=== PATIENT | male | born 1960 | race American Indian/Alaskan Native ===

== ENCOUNTER 2016-07-29 13:30 | Emergency (ER) | payer MEDICAID ==
[2016-07-29] MEDS ORDERED: Sodium Chloride 0.9% 10 ML Syringe FLUSH PRN (13:40)
--- NOTE | 2016-07-29 13:47 | EDM.PDOC ---
ED HPI GENERAL MEDICAL PROBLEM - General Chief Complaint: General Stated Complaint: WEAKNESS Time Seen by Provider: 07/29/16 13:30 Source of Information: Reports: Patient, EMS, Old records History Limitations: Reports: No limitations - History of Present Illness INITIAL COMMENTS - FREE TEXT/NARRATIVE: 55 yo chronically ill NA male presents via EMS after a fall today at home without injury associated with progressive weakness for the past couple of days and also associated with some diarrhea. Denies pain or fever. Eating OK. not able to get him off the floor so called 911. Onset Date: 07/27/16 Duration: Day(s):, Getting worse Location: Reports: generalized Quality: Reports: Other (no pain.) Severity: moderate Improves with: Reports: None Worsens with: Reports: Other (attempting to ambulate.) Context: Reports: Other (chronically ill, loose stools lately) Associated Symptoms: Reports: weakness. Denies: confusion, chest pain, cough, diaphoresis, fever/chills, headaches, loss of appetite, malaise, nausea/vomiting , rash, seizure, shortness of breath, syncope Treatments [employer]: Reports: Other (see below) (none) - Related Data Allergies Allergy/AdvReac Type Severity Reaction Status Date / Time No Known Allergies Allergy Verified 07/29/16 13:32 Home Meds: Home Meds Minocycline [Minocin] 100 mg PO BID 02/23/14 [History] Sertraline [Zoloft] 200 mg PO DAILY 02/23/14 [History] amLODIPine [Norvasc] 10 mg PO BEDTIME 02/23/14 [History] Nadolol [Naldol] 20 mg PO DAILY 06/29/14 [History] Aspirin [Gil Chewable Aspirin] 81 mg PO DAILY 01/12/16 [History] Meloxicam 7.5 mg PO DAILY 01/12/16 [History] Rifaximin [Xifaxan] 550 tab PO DAILY 01/12/16 [History] Simvastatin 10 mg PO BEDTIME 01/12/16 [History] levETIRAcetam [Keppra] 500 mg PO BID 01/12/16 [History] Warfarin [Coumadin] 1.25 mg PO DAILY@1600 #30 tablet 01/15/16 [Rx] oxyCODONE 10 mg PO Q6H PRN #20 tablet 01/15/16 [Rx] traZODone HCl [Trazodone HCl] 50 mg PO BEDTIME #30 01/15/16 [Rx] Ondansetron [Zofran ODT] 4 mg PO Q8H PRN #7 tab.dis 02/04/16 [Rx] Potassium Chloride 10 meq PO TID #20 cap.er 02/04/16 [Rx] Past Medical History Other HEENT History: wears glasses Cardiovascular History: Reports: High cholesterol, Hypertension, [place], Other (see below) Other Cardiovascular History: Patient is a very poor historian, Per old records , he had a NSTEMI following joint replacement surgery, he apparently also had a stent placed. Respiratory History: Reports: Other (see below) Other Respiratory History: smokes everyday. Gastrointestinal History: Reports: Other (see below) Other Gastrointestinal History: esophageal varicies in june Genitourinary History: Reports: None Musculoskeletal History: Reports: None, Other (see below) Other Musculoskeletal History: fell and broke the bone above the new knee replacement . has a dvt. Neurological History: Reports: Other (see below) Other Neuro History: Encephalopathy Psychiatric History: Reports: Anxiety, Depression Hematologic History: Reports: None Immunologic History: Reports: None Oncologic (Cancer) History: Reports: None Dermatologic History: Reports: Other (see below) Other Dermatologic History: very dry skin on legs and feet - Infectious Disease History Infectious Disease History: Reports: Chicken pox - Past Surgical History Cardiovascular Surgical History: Reports: Coronary artery stent Other Musculoskeletal Surgeries/Procedures:: knee replaced on 02/08 15 left right hip replaced 11/2013 Social & Family History - Family History Family Medical History: Noncontributory OBGYN: Reports: Neurological: Reports: Dementia Psychiatric: Reports: Depression Hematologic: Reports: None Other Oncologic Family History: father had cancer is all patient said - Tobacco Use Smoking Status *Q: Current Every Day Smoker Years of Tobacco use: 10 Packs/Tins Daily: 0.3 Used Tobacco, but Quit: No Month Tobacco Last Used: January Second Hand Smoke Exposure: No - Alcohol Use Days Per Week of Alcohol Use: 0 Number of Drinks Per Day: 3 Total Drinks Per Week: 0 - Recreational Drug Use Recreational Drug Use: No Drug Use in Last 12 Months: Yes Recreational Drug Type: Reports: Marijuana/Hashish Recreational Drug Use Frequency: Daily Recreational Drug Last Use: this week - Living Situation & Occupation Living situation: Reports: single, with significant other (fiancee) ED ROS GENERAL - Review of Systems Review Of Systems: See Below Constitutional: Reports: weakness. Denies: ROS unobtainable, fever, chills, malaise, fatigue, night sweats, diaphoresis, decreased appetite, weight gain HEENT: Reports: No symptoms Respiratory: Reports: No Symptoms Cardiovascular: Reports: No symptoms Endocrine: Reports: no symptoms GI/Abdominal: Reports: Diarrhea. Denies: Abdominal pain, Anorexia, Black stool , Bloody stool, Constipation, Decreased appetite, Distension, Flatus, Hematemesis, Hematochezia, Melena, Mucous in stool, Nausea, Stool incontinence, Vomiting : Reports: no symptoms Musculoskeletal: Reports: joint pain (R hip pain, has prosthetic hip, pain worse since recent falls.) Skin: Reports: other (has a hx of decubuti) Neurological: Reports: No Symptoms Psychiatric: Reports: No symptoms ED EXAM, GENERAL - Physical Exam Exam: See Below Exam Limited By: No limitations General Appearance: alert, no apparent distress, thin, other (chronically ill appearing) Eye Exam: bilateral eye: normal inspection, PERRL Ears: normal external exam, normal canal, hearing grossly normal Ear Exam: bilateral ear: auricle normal, canal normal Nose: normal inspection, normal mucosa, no blood Throat/Mouth: Normal inspection, Normal lips, Normal oropharynx, Normal voice, No airway compromise Head: atraumatic, normocephalic Neck: normal inspection, supple, non-tender Respiratory/Chest: no respiratory distress, lungs clear, normal breath sounds, no accessory muscle use Cardiovascular: regular rate, rhythm, no edema, no murmur GI/Abdominal: soft, non tender, no distention Back Exam: normal inspection Extremities: normal inspection, normal range of motion, non-tender, no pedal edema Neurological: alert, oriented, CN II-XII intact, normal cognition, no motor/ sensory deficits Psychiatric: normal affect, normal mood Skin Exam: Warm, Dry, Intact, Normal color, No rash Lymphatic: no adenopathy Course - Vital Signs Text/Narrative:: Saline lock Last Recorded V/S: Last Vital Signs Temp 36.9 C 07/29/16 13:55 Pulse 55 L 07/29/16 13:55 Resp 18 07/29/16 13:55 BP 144/83 H 07/29/16 13:55 Pulse Ox 98 07/29/16 13:55 - Orders/Labs/Meds Orders: Active Orders 24 hr Category Date Time Status Consult to Lead Software Architect [CONS] Routine Cons 07/29/16 14:49 Active UA W/MICROSCOPIC [URIN] Stat Lab 07/29/16 13:40 Uncollected Sodium Chloride 0.9% [Saline Flush] Med 07/29/16 13:40 Active 10 ml FLUSH ASDIRECTED PRN Saline Lock Insert [OM.PC] Routine Oth 07/29/16 13:40 Ordered Medication Orders Sodium Chloride (Saline Flush) 10 ml FLUSH ASDIRECTED PRN PRN Reason: Keep Vein Open Labs: Laboratory Tests 07/29/16 07/29/16 07/29/16 Range/Units 14:10 14:10 14:10 WBC 7.1 (4.5-12.0) X10-3/uL RBC 4.59 (4.30-5.75) x10(6)uL Hgb 13.0 (11.5-15.5) g/dL Hct 40.0 (30.0-51.3) % MCV 87.2 (80-96) fL MCH 28.4 (27.7-33.6) pg MCHC 32.6 (32.2-35.4) g/dL RDW 14.8 (11.5-15.5) % Plt Count 140 (125-369) X10(3)uL PT (8.7-11.1) INR (0.89-1.13) Sodium 136 (135-145) mmol/L Potassium 3.5 (3.5-5.3) mmol/L Chloride 107 (100-110) mmol/L Carbon Dioxide 21 L (23-29) mmol/L BUN 17 (5-20) mg/dL Creatinine 0.9 (0.6-1.3) mg/dL Est Cr Clr Drug Dosing TNP Estimated GFR (MDRD) > 60 (>60) BUN/Creatinine Ratio 18.9 (9-20) Glucose 100 (80-116) mg/dL Calcium 8.4 L (8.6-10.2) mg/dL Magnesium 1.6 L (1.8-2.5) mg/dL Total Bilirubin 1.5 H (0.1-1.3) mg/dL AST 143 H D (5-27) IU/L ALT 30 H D (14-26) IU/L Alkaline Phosphatase 273 H (56-112) IU/L Troponin I < 0.01 L (0.02-0.06) NG/ML Total Protein 7.6 (6.0-8.0) g/dL Albumin 2.7 L (3.5-5.2) g/dL Globulin 4.9 g/dL Albumin/Globulin Ratio 0.6 07/29/16 Range/Units 14:10 WBC (4.5-12.0) X10-3/uL RBC (4.30-5.75) x10(6)uL Hgb (11.5-15.5) g/dL Hct (30.0-51.3) % MCV (80-96) fL MCH (27.7-33.6) pg MCHC (32.2-35.4) g/dL RDW (11.5-15.5) % Plt Count (125-369) X10(3)uL PT 12.9 H (8.7-11.1) INR 1.27 H (0.89-1.13) Sodium (135-145) mmol/L Potassium (3.5-5.3) mmol/L Chloride (100-110) mmol/L Carbon Dioxide (23-29) mmol/L BUN (5-20) mg/dL Creatinine (0.6-1.3) mg/dL Est Cr Clr Drug Dosing Estimated GFR (MDRD) (>60) BUN/Creatinine Ratio (9-20) Glucose (80-116) mg/dL Calcium (8.6-10.2) mg/dL Magnesium (1.8-2.5) mg/dL Total Bilirubin (0.1-1.3) mg/dL AST (5-27) IU/L ALT (14-26) IU/L Alkaline Phosphatase (56-112) IU/L Troponin I (0.02-0.06) NG/ML Total Protein (6.0-8.0) g/dL Albumin (3.5-5.2) g/dL Globulin g/dL Albumin/Globulin Ratio Meds: Medications Generic Name Dose Route Start Last Admin Trade Name Freq PRN Reason Stop Dose Admin Sodium Chloride 10 ml 07/29/16 13:40 Saline Flush FLUSH ASDIRECTED PRN Keep Vein Open Departure - Departure Time of Disposition: 15:43 Disposition: Home, Self-Care 01 Condition: fair Clinical Impression: Chronic illness, Weakness Fall Qualifiers: Encounter type: initial encounter Qualified Code(s): W19.XXXA - Unspecified fall, initial encounter - My Orders Last 24 Hours: My Active Orders 07/29/16 13:40 UA W/MICROSCOPIC [URIN] Stat Sodium Chloride 0.9% [Saline Flush] 10 ml FLUSH ASDIRECTED PRN Saline Lock Insert [OM.PC] Routine 07/29/16 14:49 Consult to Lead Software Architect [CONS] Routine - Assessment/Plan Last 24 Hours: My Active Orders 07/29/16 13:40 UA W/MICROSCOPIC [URIN] Stat Sodium Chloride 0.9% [Saline Flush] 10 ml FLUSH ASDIRECTED PRN Saline Lock Insert [OM.PC] Routine 07/29/16 14:49 Consult to Lead Software Architect [CONS] Routine
[2016-07-29 14:17] VITALS: BP 144/83
== END 2016-07-29 16:01 | disposition home or self-care (01) ==
LOC: FB.ED 13:30
DX: R53.1 Weakness (principal); R69 Illness, unspecified; E78.00 Pure hypercholesterolemia, unspecified; I10 Essential (primary) hypertension; I25.2 Old myocardial infarction; F32.9 Major depressive disorder, single episode, unspecified; F41.9 Anxiety disorder, unspecified; F17.210 Nicotine dependence, cigarettes, uncomplicated; Z79.899 Other long term (current) drug therapy; W19.XXXA Unspecified fall, initial encounter
CPT/HCPCS: 36415; 80053; 83735; 84484; 85027; 85610; 99285

== ENCOUNTER 2016-08-19 20:23 | Inpatient (IN) | payer MEDICAID ==
--- NOTE | 2016-08-19 21:01 | EDM.PDOC ---
ED HPI GENERAL MEDICAL PROBLEM - General Chief Complaint: Neuro Symptoms/Deficits Stated Complaint: WEAKNESS Time Seen by Provider: 08/19/16 20:45 Source of Information: Reports: Patient, Old records History Limitations: Reports: Altered mental status - History of Present Illness INITIAL COMMENTS - FREE TEXT/NARRATIVE: Farshad Tejeda is well known to [facility] ED, transferred by EMS. His most recent visit of July 29, 2016 reviewed. There have been ongoing sxs of weakness, lethargy, poor appetite, and lack of goal directed behavior. There is known PMH of EHOHism , Cannabis abuse, hepatic encephalopathy, and neglect. Tonight his spouse found him on the floor, and suspects he slid out of the chair, although Farshad reports he stumbled on his feet. He denies headache, dizziness, chest pain, dyspnea, abdominal pain, voiding sxs, or focal neurologic weakness. He admits to "some weed" today, but denies ETOH or other substance abuse. His spouse is unavailable at this time to provide collateral information. An EMS report is unavailable. - Related Data Allergies Allergy/AdvReac Type Severity Reaction Status Date / Time No Known Allergies Allergy Verified 08/19/16 20:42 Home Meds: Home Meds Minocycline [Minocin] 100 mg PO BID 02/23/14 [History] Sertraline [Zoloft] 200 mg PO DAILY 02/23/14 [History] amLODIPine [Norvasc] 10 mg PO BEDTIME 02/23/14 [History] Nadolol [Naldol] 20 mg PO DAILY 06/29/14 [History] Aspirin [Gil Chewable Aspirin] 81 mg PO DAILY 01/12/16 [History] Meloxicam 7.5 mg PO DAILY 01/12/16 [History] Rifaximin [Xifaxan] 550 tab PO DAILY 01/12/16 [History] Simvastatin 10 mg PO BEDTIME 01/12/16 [History] levETIRAcetam [Keppra] 500 mg PO BID 01/12/16 [History] Warfarin [Coumadin] 1.25 mg PO DAILY@1600 #30 tablet 01/15/16 [Rx] oxyCODONE 10 mg PO Q6H PRN #20 tablet 01/15/16 [Rx] traZODone HCl [Trazodone HCl] 50 mg PO BEDTIME #30 01/15/16 [Rx] Ondansetron [Zofran ODT] 4 mg PO Q8H PRN #7 tab.dis 02/04/16 [Rx] Potassium Chloride 10 meq PO TID #20 cap.er 02/04/16 [Rx] Past Medical History Other HEENT History: wears glasses Cardiovascular History: Reports: High cholesterol, Hypertension, [place], Other (see below) Other Cardiovascular History: Patient is a very poor historian, Per old records , he had a NSTEMI following joint replacement surgery, he apparently also had a stent placed. Respiratory History: Reports: Other (see below) Other Respiratory History: smokes everyday. Gastrointestinal History: Reports: Other (see below) Other Gastrointestinal History: esophageal varicies in june Genitourinary History: Reports: None Musculoskeletal History: Reports: None, Other (see below) Other Musculoskeletal History: fell and broke the bone above the new knee replacement . has a dvt. Neurological History: Reports: Other (see below) Other Neuro History: Encephalopathy Psychiatric History: Reports: Anxiety, Depression Hematologic History: Reports: None Immunologic History: Reports: None Oncologic (Cancer) History: Reports: None Dermatologic History: Reports: Other (see below) Other Dermatologic History: very dry skin on legs and feet - Infectious Disease History Infectious Disease History: Reports: Chicken pox - Past Surgical History Cardiovascular Surgical History: Reports: Coronary artery stent Other Musculoskeletal Surgeries/Procedures:: knee replaced on 02/08 15 left right hip replaced 11/2013 Social & Family History - Family History Family Medical History: Noncontributory OBGYN: Reports: Neurological: Reports: Dementia Psychiatric: Reports: Depression Hematologic: Reports: None Other Oncologic Family History: father had cancer is all patient said - Tobacco Use Smoking Status *Q: Current Every Day Smoker Years of Tobacco use: 10 Packs/Tins Daily: 0.3 Used Tobacco, but Quit: No Month Tobacco Last Used: January Second Hand Smoke Exposure: No - Alcohol Use Days Per Week of Alcohol Use: 0 Number of Drinks Per Day: 3 Total Drinks Per Week: 0 - Recreational Drug Use Recreational Drug Use: No Drug Use in Last 12 Months: Yes Recreational Drug Type: Reports: Marijuana/Hashish Recreational Drug Use Frequency: Daily Recreational Drug Last Use: this week - Living Situation & Occupation Living situation: Reports: single, with significant other (fiancee) ED ROS GENERAL - Review of Systems Review Of Systems: See Below Constitutional: Reports: malaise, fatigue HEENT: Reports: No symptoms Respiratory: Reports: No Symptoms Cardiovascular: Reports: No symptoms Endocrine: Reports: fatigue GI/Abdominal: Reports: No symptoms : Reports: no symptoms Musculoskeletal: Reports: other (R MARCELO that prevent him from gainful employment) Skin: Reports: no symptoms Neurological: Reports: Confusion, Weakness, Other (poverty of thought) Psychiatric: Reports: Confusion Hematologic/Lymphatic: Reports: no symptoms Immunologic: Reports: no symptoms ED EXAM, GENERAL - Physical Exam Exam: See Below Exam Limited By: Altered mental status (confusion) General Appearance: alert, WD/WN, lethargic, cachetic Eye Exam: bilateral eye: normal inspection, PERRL Ears: normal external exam Nose: normal inspection Throat/Mouth: Normal inspection, Normal lips, Other (numerous teeth missing, extensive gum disease) Head: atraumatic, normocephalic Neck: normal inspection, supple, non-tender Respiratory/Chest: no respiratory distress, lungs clear, chest non-tender, decreased breath sounds Cardiovascular: regular rate, rhythm, no edema, no JVD, no murmur GI/Abdominal: soft, non tender, no organomegaly, no distention, no mass, other ( no ascities) (Male) Exam: No hernia Back Exam: normal inspection Extremities: normal inspection Neurological: CN II-XII intact, no motor/sensory deficits, inattentive, confused , slow to respond, other (no asterixis) Psychiatric: other (mood neutral, affect blunted) Skin Exam: Warm, Dry, Intact, Other (ashen coloration) Lymphatic: no adenopathy Course - Vital Signs Text/Narrative:: Following admission to the [facility] ED, an IV was placed in the LUE and he was administered 1L of NS pending results of labs and ekg. The ekg noted nsr, CBC noted Hgb 11.9 gm, WBC 8100, plts normal; CMP noted T Bili 1.9, Na 135, K 3.5, AST 141, ALT 35, Alk Ptase 270, Alb 2.6, Mg 1.8; Ammonia 93 mg; Urine Tox Screen positive for cannabis; UA: ket 1+, bili 1+. Farshad was administered 1L of NS pending results of lab studies. An Ammonia level of 124 mg was recorded last year. Medication compliance is unknown. He does not have asterixis, but is currently displaying GR I encephalopathy, and will be admitted for observation and fluids. Disposition to a SNF should be considered. Last Recorded V/S: Last Vital Signs Temp 36.3 C 08/19/16 20:44 Pulse 54 L 08/19/16 20:44 Resp 14 08/19/16 20:44 BP 91/60 08/19/16 20:44 Pulse Ox 99 08/19/16 20:44 - Orders/Labs/Meds Orders: Active Orders 24 hr Category Date Time Status EKG Documentation Completion [RC] ASDIRECTED Care 08/19/16 20:47 Active Sodium Chloride 0.9% [Normal Saline] 1,000 ml Med 08/19/16 21:00 Active IV ASDIRECTED Sodium Chloride 0.9% [Saline Flush] Med 08/19/16 20:46 Active 10 ml FLUSH ASDIRECTED PRN Peripheral IV Insertion Adult [OM.PC] Routine Oth 08/19/16 20:46 Ordered EKG 12 Lead [EK] Routine Ther 08/19/16 20:46 Ordered Medication Orders Sodium Chloride (Normal Saline) 1,000 mls @ 500 mls/hr IV ASDIRECTED BRANDEN Last Admin: 08/19/16 21:08 Dose: 500 mls/hr Sodium Chloride (Saline Flush) 10 ml FLUSH ASDIRECTED PRN PRN Reason: Keep Vein Open Last Admin: 08/19/16 21:07 Dose: 10 ml Labs: Laboratory Tests 08/19/16 08/19/16 08/19/16 Range/Units 21:00 21:00 21:00 WBC 8.1 (4.5-12.0) X10-3/uL RBC 4.24 L (4.30-5.75) x10(6)uL Hgb 11.9 (11.5-15.5) g/dL Hct 36.7 (30.0-51.3) % MCV 86.5 (80-96) fL MCH 28.0 (27.7-33.6) pg MCHC 32.4 (32.2-35.4) g/dL RDW 15.4 (11.5-15.5) % Plt Count 186 (125-369) X10(3)uL MPV 9.7 (7.4-10.4) fL Neut % (Auto) 69.0 (46-82) % Lymph % (Auto) 24.6 (13-37) % [place] % (Auto) 5.6 (4-12) % Eos % (Auto) 1 (1.0-5.0) % Baso % (Auto) 0 (0-2) % Neut # (Auto) 5.6 (1.6-8.3) # Lymph # (Auto) 2.0 (0.6-5.0) # [place] # (Auto) 0.5 (0.0-1.3) # Eos # (Auto) 0.0 (0.0-0.8) # Baso # (Auto) 0.0 (0.0-0.2) # Sodium 135 (135-145) mmol/L Potassium 3.5 (3.5-5.3) mmol/L Chloride 106 (100-110) mmol/L Carbon Dioxide 20 L (23-29) mmol/L BUN 25 H (5-20) mg/dL Creatinine 1.2 (0.6-1.3) mg/dL Est Cr Clr Drug Dosing 79.53 mL/min Estimated GFR (MDRD) > 60 (>60) BUN/Creatinine Ratio 20.8 H (9-20) Glucose 87 (80-116) mg/dL Calcium 8.3 L (8.6-10.2) mg/dL Magnesium 1.8 (1.8-2.5) mg/dL Total Bilirubin 1.9 H (0.1-1.3) mg/dL AST 141 H (5-27) IU/L ALT 35 H D (14-26) IU/L Alkaline Phosphatase 270 H (56-112) IU/L Ammonia Total Protein 7.5 (6.0-8.0) g/dL Albumin 2.6 L (3.5-5.2) g/dL Globulin 4.9 g/dL Albumin/Globulin Ratio 0.5 Urine Color (YELLOW) Urine Appearance (CLEAR) Urine pH (5.0-6.5) Ur Specific [place] (1.010-1.025) Urine Protein (NEGATIVE) mg/dL Urine Glucose (UA) (NEGATIVE) mg/dL Urine Ketones (NEGATIVE) mg/dL Urine Occult Blood (NEGATIVE) Urine Nitrite (NEGATIVE) Urine Bilirubin (NEGATIVE) Urine Urobilinogen (NEGATIVE) mg/dL Ur Leukocyte Esterase (NEGATIVE) Urine RBC (0) Urine WBC (0) Ur Squamous Epith Cells (NS,R,O) Urine Bacteria (NS) Urine Opiates Screen (NEGATIVE) Ur Oxycodone Screen (NEGATIVE) Ur Propoxyphene Screen (NEGATIVE) Ur Barbituates Screen (NEGATIVE) Ur Tricyclics Screen (NEGATIVE) Ur Phencyclidine Scrn (NEGATIVE) Ur Amphetamine Screen (NEGATIVE) Urine MDMA Screen (NEGATIVE) U Benzodiazepines Scrn (NEGATIVE) U Cocaine Metab Screen (NEGATIVE) U Marijuana (THC) Screen (NEGATIVE) Ethyl Alcohol < 0.01 (<0.01) % 08/19/16 08/19/16 08/19/16 Range/Units 21:00 23:25 23:25 WBC (4.5-12.0) X10-3/uL RBC (4.30-5.75) x10(6)uL Hgb (11.5-15.5) g/dL Hct (30.0-51.3) % MCV (80-96) fL MCH (27.7-33.6) pg MCHC (32.2-35.4) g/dL RDW (11.5-15.5) % Plt Count (125-369) X10(3)uL MPV (7.4-10.4) fL Neut % (Auto) (46-82) % Lymph % (Auto) (13-37) % [place] % (Auto) (4-12) % Eos % (Auto) (1.0-5.0) % Baso % (Auto) (0-2) % Neut # (Auto) (1.6-8.3) # Lymph # (Auto) (0.6-5.0) # [place] # (Auto) (0.0-1.3) # Eos # (Auto) (0.0-0.8) # Baso # (Auto) (0.0-0.2) # Sodium (135-145) mmol/L Potassium (3.5-5.3) mmol/L Chloride (100-110) mmol/L Carbon Dioxide (23-29) mmol/L BUN (5-20) mg/dL Creatinine (0.6-1.3) mg/dL Est Cr Clr Drug Dosing mL/min Estimated GFR (MDRD) (>60) BUN/Creatinine Ratio (9-20) Glucose (80-116) mg/dL Calcium (8.6-10.2) mg/dL Magnesium (1.8-2.5) mg/dL Total Bilirubin (0.1-1.3) mg/dL AST (5-27) IU/L ALT (14-26) IU/L Alkaline Phosphatase (56-112) IU/L Ammonia 93 Total Protein (6.0-8.0) g/dL Albumin (3.5-5.2) g/dL Globulin g/dL Albumin/Globulin Ratio Urine Color Yellow (YELLOW) Urine Appearance Clear (CLEAR) Urine pH 6.0 (5.0-6.5) Ur Specific [place] 1.020 (1.010-1.025) Urine Protein Negative (NEGATIVE) mg/dL Urine Glucose (UA) Normal (NEGATIVE) mg/dL Urine Ketones 15 H (NEGATIVE) mg/dL Urine Occult Blood Negative (NEGATIVE) Urine Nitrite Negative (NEGATIVE) Urine Bilirubin Small H (NEGATIVE) Urine Urobilinogen 4 H (NEGATIVE) mg/dL Ur Leukocyte Esterase Negative (NEGATIVE) Urine RBC 0-5 (0) Urine WBC 0-5 (0) Ur Squamous Epith Cells Occasional (NS,R,O) Urine Bacteria Rare H (NS) Urine Opiates Screen Negative (NEGATIVE) Ur Oxycodone Screen Negative (NEGATIVE) Ur Propoxyphene Screen Negative (NEGATIVE) Ur Barbituates Screen Negative (NEGATIVE) Ur Tricyclics Screen Negative (NEGATIVE) Ur Phencyclidine Scrn Negative (NEGATIVE) Ur Amphetamine Screen Negative (NEGATIVE) Urine MDMA Screen Negative (NEGATIVE) U Benzodiazepines Scrn Negative (NEGATIVE) U Cocaine Metab Screen Negative (NEGATIVE) U Marijuana (THC) Screen Positive H (NEGATIVE) Ethyl Alcohol (<0.01) % Meds: Medications Generic Name Dose Route Start Last Admin Trade Name Freq PRN Reason Stop Dose Admin Sodium Chloride 1,000 mls @ 500 mls/hr 08/19/16 21:00 08/19/16 21:08 Normal Saline IV 500 mls/hr ASDIRECTED BRANDEN Administration Sodium Chloride 10 ml 08/19/16 20:46 08/19/16 21:07 Saline Flush FLUSH 10 ml ASDIRECTED PRN Administration Keep Vein Open Departure - Departure Time of Disposition: 00:50 Disposition: Refer to Observation Condition: poor Clinical Impression: Hepatic encephalopathy, Cannabis abuse, Generalized convulsive epilepsy, HTN, Essential hypertension, Osteoarthritis, [place], Myocardial infarction Referrals: PCP,Unknown [Primary Care Provider] - - Problem List & Annotations (1) Hepatic encephalopathy SNOMED Code(s): 34103200 Code(s): K72.90 - HEPATIC FAILURE, UNSPECIFIED WITHOUT COMA Status: Acute Current Visit: Yes Annotation/Comment:: Farshad displays signs of GR I encephalopathy. A GI bleed is not suspected. Med compliance is unknown. He will receive hydration tonight and discuss disposition with family and hospitalist in the morning. (2) Cannabis abuse SNOMED Code(s): 44444225 Code(s): F12.10 - CANNABIS ABUSE, UNCOMPLICATED Status: Acute Current Visit: Yes Annotation/Comment:: Farshad needs a safe environment away from smoking cigarettes or MJ. (3) Generalized convulsive epilepsy SNOMED Code(s): 50706047 Code(s): G40.309 - GEN IDIOPATHIC EPILEPSY, NOT INTRACTABLE, W/O STAT EPI Status: Chronic Current Visit: Yes Annotation/Comment:: Farshad needs med compliance to avoid relapse of epilepsy. (4) DVT (deep venous thrombosis) SNOMED Code(s): 174278093 Code(s): I82.409 - ACUTE EMBOLISM AND THOMBOS UNSP DEEP VN UNSP LOWER EXTREMITY Status: Acute Current Visit: No Annotation/Comment:: Farshad has a PMH of DVT, and was on Warfarin at last ED visit of 07/29/16. (5) [place], Myocardial infarction SNOMED Code(s): 96144217 Code(s): I21.3 - ST ELEVATION (STEMI) MYOCARDIAL INFARCTION OF UNSP SITE Status: Acute Current Visit: Yes Annotation/Comment:: Farshad has remote his of NSTEMI and stenting, and needs med compliance and tobacco avoidance to preserve myocardial function. - Problem List Review Problem List Initiated/Reviewed/Updated: Yes - My Orders Last 24 Hours: My Active Orders 08/19/16 20:46 Sodium Chloride 0.9% [Saline Flush] 10 ml FLUSH ASDIRECTED PRN Peripheral IV Insertion Adult [OM.PC] Routine EKG 12 Lead [EK] Routine 08/19/16 20:47 EKG Documentation Completion [RC] ASDIRECTED 08/19/16 21:00 Sodium Chloride 0.9% [Normal Saline] 1,000 ml IV ASDIRECTED - Assessment/Plan Last 24 Hours: My Active Orders 08/19/16 20:46 Sodium Chloride 0.9% [Saline Flush] 10 ml FLUSH ASDIRECTED PRN Peripheral IV Insertion Adult [OM.PC] Routine EKG 12 Lead [EK] Routine 08/19/16 20:47 EKG Documentation Completion [RC] ASDIRECTED 08/19/16 21:00 Sodium Chloride 0.9% [Normal Saline] 1,000 ml IV ASDIRECTED Plan: Admit to Observation, and convene with family in the morning to discuss disposition with Hospitalist.
[2016-08-19] MEDS: Sodium Chloride 0.9% 10 ML Syringe FLUSH PRN (21:07)
[2016-08-19] MEDS: Sodium Chloride 0.9% 1,000 ML IV SCH (21:08)
[2016-08-20] MEDS ORDERED: Ondansetron 4 MG Tab.DIS PO PRN ×2 (02:00→02:12)
[2016-08-20] MEDS ORDERED: Acetaminophen 325 MG Tab PO PRN (02:00)
[2016-08-20] MEDS: Sodium Chloride 0.9% 1,000 ML IV SCH ×4 (05:17→18:38)
[2016-08-20] MEDS: Sodium Chloride 0.9% 10 ML Syringe FLUSH PRN ×2 (05:18→05:19)
[2016-08-20] MEDS: levETIRAcetam 500 MG Tab PO SCH ×2 (08:55→20:57)
[2016-08-20] MEDS: Aspirin 81 MG Tab.Chew PO SCH (08:55)
[2016-08-20] MEDS: Rifaximin 550 MG Tab PO SCH ×2 (08:58→20:57)
[2016-08-20] MEDS ORDERED: Rifaximin 550 MG Tab PO SCH (09:00)
--- NOTE | 2016-08-20 11:46 | PCM.HP ---
H&P History of Present Illness - General Date of Service: 08/20/16 Admit Problem/Dx: Admission Diagnosis/Problem Admission Diagnosis/Problem Hepatic encephalopathy Source of Information: Patient, Family History Limitations: Reports: Altered mental status - History of Present Illness Initial Comments - Free Text/Narative: This is a 55-year-old male patient with a history of alcoholism. He has been falling at home and more confused according to his . He can answer questions yes and no today. He fell yesterday and was brought in. He has a history of rheumatoid arthritis and his says his numbness in his legs and is unable to ambulate because of weakness. She states he's not using alcohol for one year. He feels a little chilly. He denies fevers, nasal congestion, sore throat, abdominal pain. Generalized Pain Score (Numeric/FACES): 9 - Related Data Allergies/Adverse Reactions: Allergies Allergy/AdvReac Type Severity Reaction Status Date / Time No Known Allergies Allergy Verified 08/19/16 20:42 Home Medications: Home Meds Minocycline [Minocin] 100 mg PO BID 02/23/14 [History] Sertraline [Zoloft] 200 mg PO DAILY 02/23/14 [History] amLODIPine [Norvasc] 10 mg PO BEDTIME 02/23/14 [History] Nadolol [Naldol] 20 mg PO DAILY 06/29/14 [History] Aspirin [Gil Chewable Aspirin] 81 mg PO DAILY 01/12/16 [History] Meloxicam 7.5 mg PO DAILY 01/12/16 [History] Rifaximin [Xifaxan] 550 tab PO DAILY 01/12/16 [History] Simvastatin 10 mg PO BEDTIME 01/12/16 [History] levETIRAcetam [Keppra] 500 mg PO BID 01/12/16 [History] traZODone 50 mg PO BEDTIME PRN 08/20/16 [History] Past Medical History Other HEENT History: wears glasses Cardiovascular History: Reports: High cholesterol, Hypertension, [place], Other (see below) Other Cardiovascular History: Patient is a very poor historian, Per old records , he had a NSTEMI following joint replacement surgery, he apparently also had a stent placed. Respiratory History: Reports: Other (see below) Other Respiratory History: smokes everyday. Gastrointestinal History: Reports: Other (see below) Other Gastrointestinal History: esophageal varicies in june Genitourinary History: Reports: None Musculoskeletal History: Reports: None, Other (see below) Other Musculoskeletal History: fell and broke the bone above the new knee replacement . has a dvt. Neurological History: Reports: Other (see below) Other Neuro History: Encephalopathy Psychiatric History: Reports: Anxiety, Depression Hematologic History: Reports: None Immunologic History: Reports: None Oncologic (Cancer) History: Reports: None Dermatologic History: Reports: Other (see below) Other Dermatologic History: very dry skin on legs and feet - Infectious Disease History Infectious Disease History: Reports: Chicken pox - Past Surgical History Cardiovascular Surgical History: Reports: Coronary artery stent Respiratory Surgical History: Reports: None Other Musculoskeletal Surgeries/Procedures:: knee replaced on 02/08 15 left right hip replaced 11/2013 Social & Family History - Family History Family Medical History: Noncontributory OBGYN: Reports: Neurological: Reports: Dementia Psychiatric: Reports: Depression Hematologic: Reports: None Other Oncologic Family History: father had cancer is all patient said - Tobacco Use Smoking Status *Q: Current Every Day Smoker Years of Tobacco use: 10 Packs/Tins Daily: 0.3 Used Tobacco, but Quit: No Month Tobacco Last Used: January Second Hand Smoke Exposure: No - Caffeine Use Caffeine Use: Reports: None - Alcohol Use Days Per Week of Alcohol Use: 0 Number of Drinks Per Day: 3 Total Drinks Per Week: 0 - Recreational Drug Use Recreational Drug Use: Yes Drug Use in Last 12 Months: Yes Recreational Drug Type: Reports: Marijuana/Hashish Recreational Drug Use Frequency: Daily Recreational Drug Last Use: this week - Living Situation & Occupation Living situation: Reports: single, with significant other (fiancee) H&P Review of Systems - Review of Systems: Review Of Systems: See Below General: Reports: chills, malaise, weakness, fatigue. Denies: fever, night sweats, diaphoresis HEENT: Reports: no symptoms Pulmonary: Reports: No Symptoms Cardiovascular: Reports: no symptoms Gastrointestinal: Reports: No symptoms Genitourinary: Reports: no symptoms Musculoskeletal: Reports: joint swelling Skin: Reports: no symptoms Psychiatric: Reports: depression Neurological: Reports: Confusion Immunologic: Reports: no symptoms Exam - Exam Exam: See Below - Vital Signs Vital Signs: Last Vital Signs Temp 97.5 F 08/20/16 08:00 Pulse 54 L 04/05/17 08:57 Resp 16 08/20/16 08:00 BP 89/54 L 08/20/16 08:57 Pulse Ox 98 08/20/16 08:00 Weight: 180 lb 11.2 oz - Exam General: alert, cooperative, sedated HEENT: PERRLA, Conjunctiva clear, Hearing intact, Posterior pharynx clear. No: Scleral icterus Neck: supple, trachea midline Lungs: Clear to auscultation, Normal respiratory effort Cardiovascular: regular rate, regular rhythm. No: systolic murmur, diastolic murmur Abdomen: normal bowel sounds, soft. No: organomegaly, guarding, rigidity, rebound, tenderness Back Exam: normal inspection Extremities: No: edema Neuro Extensive - Mental Status: alert. No: normal mood/affect, normal cognition - Patient Data Lab Results last 24 hrs: Laboratory Results - last 24 hr 08/20/16 Range/Units 03:10 PT 15.8 H (8.7-11.1) INR 1.55 H (0.89-1.13) Result Diagrams: 08/19/16 21:00 08/19/16 21:00 *Q Meaningful Use (ADM) - VTE *Q VTE Criteria *Q: - Stroke *Q Stroke Criteria *Q: - AMI *Q AMI Criteria *Q: - Problem List (1) Cannabis abuse SNOMED Code(s): 01642792 ICD Code: F12.10 - CANNABIS ABUSE, UNCOMPLICATED Status: Acute Current Visit: Yes Problem Details: Farshad needs a safe environment away from smoking cigarettes or MJ. (2) Hepatic encephalopathy SNOMED Code(s): 43044591 ICD Code: K72.90 - HEPATIC FAILURE, UNSPECIFIED WITHOUT COMA Status: Acute Current Visit: Yes Problem Details: Farshad displays signs of GR I encephalopathy. A GI bleed is not suspected. Med compliance is unknown. He will receive hydration tonight and discuss disposition with family and hospitalist in the morning. (3) Unable to ambulate SNOMED Code(s): 651012897 ICD Code: R26.2 - DIFFICULTY IN WALKING, NOT ELSEWHERE CLASSIFIED Status: Acute Current Visit: No Problem Details: Very difficult for patient to move secondary to weight bearing status of leg. (4) Weakness SNOMED Code(s): 55480626 ICD Code: R53.1 - WEAKNESS Status: Acute Current Visit: No (5) Dehydration SNOMED Code(s): 02307695 ICD Code: E86.0 - DEHYDRATION Status: Resolved Priority: Low Current Visit: No Problem Details: Resolved with IVF. (6) Recurrent falls while walking SNOMED Code(s): 195045515 ICD Code: R29.6 - REPEATED FALLS Status: Resolved Priority: High Current Visit: No Onset Date: 04/04/15 (7) Palliative care status SNOMED Code(s): 039281264 ICD Code: Z51.5 - ENCOUNTER FOR PALLIATIVE CARE Status: Acute Current Visit: Yes Problem List Initiated/Reviewed/Updated: Yes Orders Last 24hrs: Active Orders 24 hr Category Date Time Status Patient Status [ADT] Routine ADT 08/20/16 02:00 Active Anticoag Warfarin Education *Q [RC] DAILY Care 08/20/16 02:00 Active Oxygen Therapy [RC] PRN Care 08/20/16 02:00 Active Up With Assistance [RC] ASDIRECTED Care 08/20/16 02:00 Active VTE/DVT Education [RC] Per Unit Routine Care 08/20/16 02:00 Active Vital Signs [RC] 00,04,08,12,16,20 Care 08/20/16 02:00 Active Mechanical Soft Diet [DIET] Diet 08/20/16 Breakfast Active Acetaminophen [Tylenol] Med 08/20/16 02:00 Active 650 mg PO Q4H PRN Aspirin Med 08/20/16 09:00 Active 81 mg PO DAILY Nadolol [Naldol] Med 08/20/16 09:00 Active 20 mg PO DAILY Ondansetron [Zofran ODT] Med 08/20/16 02:12 Active 4 mg PO Q8H PRN Rifaximin [Xifaxan] Med 08/20/16 09:00 Active 550 mg PO BID Sodium Chloride 0.9% [Normal Saline] 1,000 ml Med 08/20/16 02:15 Active IV ASDIRECTED Warfarin [Coumadin] Med 08/20/16 16:00 Active 1.25 mg PO DAILY@1600 levETIRAcetam [Keppra] Med 08/20/16 09:00 Active 500 mg PO BID Resuscitation Status Routine Resus Stat 08/20/16 02:00 Ordered Medication Orders Acetaminophen (Tylenol) 650 mg PO Q4H PRN PRN Reason: Pain (Mild 1-3)/fever Aspirin (Aspirin) 81 mg PO DAILY [facility] Last Admin: 08/20/16 08:55 Dose: 81 mg Sodium Chloride (Normal Saline) 1,000 mls @ 500 mls/hr IV ASDIRECTED [facility] Last Admin: 08/20/16 05:17 Dose: 500 mls/hr Infusion: 08/19/16 23:08 Dose: 500 mls/hr Admin: 08/19/16 21:08 Dose: 500 mls/hr Sodium Chloride (Normal Saline) 1,000 mls @ 150 mls/hr IV ASDIRECTED [facility] Last Admin: 08/20/16 05:18 Dose: 150 mls/hr Levetiracetam (Keppra) 500 mg PO BID [facility] Last Admin: 08/20/16 08:55 Dose: 500 mg Nadolol (Naldol) 20 mg PO DAILY [facility] Last Admin: 08/20/16 08:57 Dose: Ondansetron HCl (Zofran Odt) 4 mg PO Q8H PRN PRN Reason: Nausea Rifaximin (Xifaxan) 550 mg PO BID [facility] Last Admin: 08/20/16 08:58 Dose: 550 mg Sodium Chloride (Saline Flush) 10 ml FLUSH ASDIRECTED PRN PRN Reason: Keep Vein Open Last Admin: 08/20/16 05:19 Dose: 10 ml Admin: 08/20/16 05:18 Dose: 10 ml Admin: 08/19/16 21:07 Dose: 10 ml Warfarin Sodium (Coumadin) 1.25 mg PO DAILY@1600 [facility] Assessment/Plan Comment:: 1. Admit for inpatient. 2. The patient's stated that they're interested in [facility] care. So I will order PT/OT and social service. 3. He wants to be a full code. 4. His ammonia level is high so we'll start lactulose. 5. IV fluids. 6. Continue home meds. 7. Pharmacy to manage his INR level.
[2016-08-20] MEDS ORDERED: Lactulose Soln 10 GM/15 ML 30 ML UD Cup PO SCH ×2 (12:00→21:00)
[2016-08-20] MEDS: LACTULOSE PO SCH ×6 (12:55→16:04)
[2016-08-20] MEDS: Sertraline 100 MG Tab PO SCH (13:15)
[2016-08-20] MEDS ORDERED: Warfarin 2.5 MG Tab PO SCH (16:00)
[2016-08-20] MEDS: Warfarin 2.5 MG Tab PO SCH (16:04)
[2016-08-21] MEDS: Sodium Chloride 0.9% 1,000 ML IV SCH (03:22)
[2016-08-21] MEDS: Aspirin 81 MG Tab.Chew PO SCH (08:46)
[2016-08-21] MEDS: levETIRAcetam 500 MG Tab PO SCH ×2 (08:47→21:12)
[2016-08-21] MEDS: Rifaximin 550 MG Tab PO SCH ×2 (08:48→21:11)
[2016-08-21] MEDS: Sertraline 100 MG Tab PO SCH (08:48)
[2016-08-21] MEDS: LACTULOSE PO SCH ×6 (08:50→21:12)
--- NOTE | 2016-08-21 09:54 | PCM.PN ---
- General Info Date of Service: 08/21/16 Admission Dx/Problem (Free Text): patient states he feels drowsy. He denies fevers, chills. He says he doesn't feel good but does not say what's wrong with him. He denies chest pain, shortness of breath, abdominal pain. - Patient Data Vitals - most recent: Last Vital Signs Temp 98.1 F 08/21/16 04:30 Pulse 53 L 08/21/16 04:30 Resp 20 08/21/16 04:30 BP 113/76 08/21/16 04:30 Pulse Ox 97 08/21/16 04:30 Weight - most recent: 180 lb 11.2 oz I&O - last 24 hours: Intake & Output 08/20/16 08/21/16 08/21/16 22:59 06:59 14:59 Intake Total 448 1306 Balance 448 1306 Lab Results last 24 hrs: Laboratory Results - last 24 hr 08/21/16 08/21/16 Range/Units 07:25 07:25 WBC 6.4 (4.5-12.0) X10-3/uL RBC 3.94 L (4.30-5.75) x10(6)uL Hgb 11.6 (11.5-15.5) g/dL Hct 34.8 (30.0-51.3) % MCV 88.1 (80-96) fL MCH 29.4 (27.7-33.6) pg MCHC 33.3 (32.2-35.4) g/dL RDW 15.5 (11.5-15.5) % Plt Count 140 (125-369) X10(3)uL MPV 9.5 (7.4-10.4) fL Neut % (Auto) 70.4 (46-82) % Lymph % (Auto) 24.3 (13-37) % [place] % (Auto) 4.0 (4-12) % Eos % (Auto) 1 (1.0-5.0) % Baso % (Auto) 0 (0-2) % Neut # (Auto) 4.4 (1.6-8.3) # Lymph # (Auto) 1.6 (0.6-5.0) # [place] # (Auto) 0.3 (0.0-1.3) # Eos # (Auto) 0.1 (0.0-0.8) # Baso # (Auto) 0.0 (0.0-0.2) # Sodium 138 (135-145) mmol/L Potassium 3.4 L (3.5-5.3) mmol/L Chloride 115 H D (100-110) mmol/L Carbon Dioxide 16 L (23-29) mmol/L BUN 14 D (5-20) mg/dL Creatinine 0.8 (0.6-1.3) mg/dL Est Cr Clr Drug Dosing 119.30 mL/min Estimated GFR (MDRD) > 60 (>60) BUN/Creatinine Ratio 17.5 (9-20) Glucose 74 L (80-116) mg/dL Calcium 7.7 L (8.6-10.2) mg/dL Total Bilirubin 1.9 H (0.1-1.3) mg/dL AST 163 H D (5-27) IU/L ALT 34 H (14-26) IU/L Alkaline Phosphatase 245 H (56-112) IU/L Total Protein 6.5 (6.0-8.0) g/dL Albumin 2.2 L (3.5-5.2) g/dL Globulin 4.3 g/dL Albumin/Globulin Ratio 0.5 Med Orders - Current: Current Medications Acetaminophen (Tylenol) 650 mg PO Q4H PRN PRN Reason: Pain (Mild 1-3)/fever Aspirin (Aspirin) 81 mg PO DAILY [facility] Last Admin: 08/21/16 08:46 Dose: 81 mg Sodium Chloride (Normal Saline) 1,000 mls @ 500 mls/hr IV ASDIRECTED [facility] Last Admin: 08/21/16 03:22 Dose: 150 mls/hr Sodium Chloride (Normal Saline) 1,000 mls @ 125 mls/hr IV ASDIRECTED [facility] Last Admin: 08/20/16 18:38 Dose: 150 mls/hr Lactulose 20 gm/ Lactulose 10 (gm) 30 gm PO TID [facility] Last Admin: 08/21/16 08:50 Dose: 30 gm Levetiracetam (Keppra) 500 mg PO BID [facility] Last Admin: 08/21/16 08:47 Dose: 500 mg Nadolol (Naldol) 20 mg PO DAILY [facility] Last Admin: 08/21/16 08:47 Dose: 20 mg Ondansetron HCl (Zofran Odt) 4 mg PO Q8H PRN PRN Reason: Nausea Rifaximin (Xifaxan) 550 mg PO BID [facility] Last Admin: 08/21/16 08:48 Dose: 550 mg Sertraline HCl (Zoloft) 200 mg PO DAILY [facility] Last Admin: 08/21/16 08:48 Dose: 200 mg Sodium Chloride (Saline Flush) 10 ml FLUSH ASDIRECTED PRN PRN Reason: Keep Vein Open Last Admin: 08/20/16 05:19 Dose: 10 ml Warfarin Sodium (Coumadin) 1.25 mg PO DAILY@1600 [facility] Last Admin: 08/20/16 16:04 Dose: 1.25 mg Discontinued Medications Lactulose 20 gm/ Lactulose 10 (gm) 30 gm PO Q2H [facility] Last Admin: 08/20/16 16:04 Dose: 30 gm Lactulose (Cephulac) 30 gm PO TID [facility] Last Admin: 08/20/16 20:54 Dose: 30 gm Ondansetron HCl (Zofran Odt) 4 mg PO Q6H PRN PRN Reason: nausea, able to take PO Rifaximin (Xifaxan) mg PO DAILY [facility] Warfarin Sodium (Coumadin) 1.25 mg PO DAILY@1600 [facility] - Exam General: cooperative, sedated Neck: supple Lungs: Clear to auscultation, Normal respiratory effort Cardiovascular: Regular Rate, Regular Rhythm, No Murmurs Abdomen: bowel sounds present, soft, no tenderness, no distension Extremities: no edema Skin: warm, dry, intact Psy/Mental Status: No: normal affect, normal mood - Problem List & Annotations (1) Cannabis abuse SNOMED Code(s): 05658975 Code(s): F12.10 - CANNABIS ABUSE, UNCOMPLICATED Status: Acute Current Visit: Yes Annotation/Comment:: Farshad needs a safe environment away from smoking cigarettes or MJ. (2) Hepatic encephalopathy SNOMED Code(s): 68794130 Code(s): K72.90 - HEPATIC FAILURE, UNSPECIFIED WITHOUT COMA Status: Acute Current Visit: Yes Annotation/Comment:: Farshad displays signs of GR I encephalopathy. A GI bleed is not suspected. Med compliance is unknown. He will receive hydration tonight and discuss disposition with family and hospitalist in the morning. (3) Unable to ambulate SNOMED Code(s): 328638310 Code(s): R26.2 - DIFFICULTY IN WALKING, NOT ELSEWHERE CLASSIFIED Status: Acute Current Visit: No Annotation/Comment:: Very difficult for patient to move secondary to weight bearing status of leg. (4) Weakness SNOMED Code(s): 50954502 Code(s): R53.1 - WEAKNESS Status: Acute Current Visit: No (5) Dehydration SNOMED Code(s): 32481732 Code(s): E86.0 - DEHYDRATION Status: Resolved Priority: Low Current Visit: No Annotation/Comment:: Resolved with IVF. (6) Recurrent falls while walking SNOMED Code(s): 152797781 Code(s): R29.6 - REPEATED FALLS Status: Resolved Priority: High Current Visit: No Onset Date: 04/04/15 (7) Palliative care status SNOMED Code(s): 013712461 Code(s): Z51.5 - ENCOUNTER FOR PALLIATIVE CARE Status: Acute Current Visit: Yes - Problem List Review Problem List Initiated/Reviewed/Updated: Yes - My Orders Last 24 Hours: My Active Orders 08/21/16 09:00 Lactulose [Cephulac, Chronulac] 30 gm PO TID 08/21/16 09:51 AMMONIA [REF] Routine - Plan Plan:: 1. ammonia level. 2. PT/OT. 3. Change IV fluids to D5 half normal at 100 mL an hour.
[2016-08-21] MEDS: D5 1/2 NS w/ 20 mEq/L KCl 1,000 ML IV SCH ×2 (11:02→21:08)
[2016-08-21] MEDS: Warfarin 2.5 MG Tab PO SCH (16:05)
[2016-08-22] MEDS: D5 1/2 NS w/ 20 mEq/L KCl 1,000 ML IV SCH (07:11)
[2016-08-22] MEDS: Aspirin 81 MG Tab.Chew PO SCH (08:54)
[2016-08-22] MEDS: LACTULOSE PO SCH ×6 (08:55→20:52)
[2016-08-22] MEDS: levETIRAcetam 500 MG Tab PO SCH ×2 (08:55→20:52)
[2016-08-22] MEDS: Sertraline 100 MG Tab PO SCH (08:56)
[2016-08-22] MEDS: Rifaximin 550 MG Tab PO SCH ×2 (08:56→20:52)
[2016-08-22] MEDS ORDERED: Warfarin Sliding Scale PO SCH (09:15)
[2016-08-22] MEDS ORDERED: Iopamidol 755 Mg/ML 100 ML Bottle IV ONE (10:13)
--- NOTE | 2016-08-22 10:34 | PCM.PN ---
- General Info Date of Service: 08/22/16 - Patient Data Vitals - most recent: Last Vital Signs Temp 97.9 F 08/22/16 04:00 Pulse 58 L 08/22/16 08:55 Resp 16 08/22/16 04:00 BP 114/71 08/22/16 08:55 Pulse Ox 97 08/22/16 04:00 Weight - most recent: 81.964 kg I&O - last 24 hours: Intake & Output 08/21/16 08/22/16 08/22/16 22:59 06:59 14:59 Intake Total 1407 1148 Balance 1407 1148 Lab Results last 24 hrs: Laboratory Results - last 24 hr 08/21/16 08/22/16 Range/Units 10:45 07:05 PT 15.7 H (8.7-11.1) INR 1.54 H (0.89-1.13) Ammonia 80 Med Orders - Current: Current Medications Aspirin (Aspirin) 81 mg PO DAILY [facility] Last Admin: 08/22/16 08:54 Dose: 81 mg Enoxaparin Sodium (Lovenox) 80 mg SUBCUT Q12H [facility] Folic Acid (Folic Acid) 1 mg PO DAILY [facility] Lactulose 20 gm/ Lactulose 10 (gm) 30 gm PO TID [facility] Last Admin: 08/22/16 08:55 Dose: 30 gm Levetiracetam (Keppra) 500 mg PO BID [facility] Last Admin: 08/22/16 08:55 Dose: 500 mg Multivitamins/Minerals/Vitamin C (Tab-A-Cameron) 1 tab PO DAILY [facility] Nadolol (Naldol) 20 mg PO DAILY [facility] Last Admin: 08/22/16 08:55 Dose: 20 mg Ondansetron HCl (Zofran Odt) 4 mg PO Q8H PRN PRN Reason: Nausea Pantoprazole Sodium (Protonix Iv) 40 mg IVPUSH Q24H [facility] Phytonadione (Vitamin K) 100 mcg PO DAILY [facility] Rifaximin (Xifaxan) 550 mg PO BID [facility] Last Admin: 08/22/16 08:56 Dose: 550 mg Sertraline HCl (Zoloft) 200 mg PO DAILY [facility] Last Admin: 08/22/16 08:56 Dose: 200 mg Sodium Chloride (Saline Flush) 10 ml FLUSH ASDIRECTED PRN PRN Reason: Keep Vein Open Last Admin: 08/20/16 05:19 Dose: 10 ml Thiamine HCl (Vitamin B-1) 100 mg PO BEDTIME [facility] Warfarin Sodium (Coumadin) 2.5 mg PO 1600 [facility] Stop: 08/22/16 16:01 Warfarin Sodium (Coumadin Sliding Scale) 0 each PO DAILY [facility] Discontinued Medications Acetaminophen (Tylenol) 650 mg PO Q4H PRN PRN Reason: Pain (Mild 1-3)/fever Last Admin: 08/21/16 16:23 Dose: 650 mg Sodium Chloride (Normal Saline) 1,000 mls @ 500 mls/hr IV ASDIRECTED [facility] Last Admin: 08/21/16 03:22 Dose: 150 mls/hr Sodium Chloride (Normal Saline) 1,000 mls @ 125 mls/hr IV ASDIRECTED [facility] Last Admin: 08/20/16 18:38 Dose: 150 mls/hr Potassium Chloride/Dextrose/Sod Cl (D5 1/2 Ns W/ 20 Meq/L Kcl) 1,000 mls @ 100 mls/hr IV Q10H [facility] Last Admin: 08/22/16 07:11 Dose: 100 mls/hr Iopamidol (Isovue-370 (76%)) 100 ml IV . DIRECTED ONE Stop: 08/22/16 10:14 Lactulose 20 gm/ Lactulose 10 (gm) 30 gm PO Q2H [facility] Last Admin: 08/20/16 16:04 Dose: 30 gm Lactulose (Cephulac) 30 gm PO TID [facility] Last Admin: 08/20/16 20:54 Dose: 30 gm Ondansetron HCl (Zofran Odt) 4 mg PO Q6H PRN PRN Reason: nausea, able to take PO Rifaximin (Xifaxan) mg PO DAILY [facility] Warfarin Sodium (Coumadin) 1.25 mg PO DAILY@1600 [facility] Last Admin: 08/21/16 16:05 Dose: 1.25 mg Warfarin Sodium (Coumadin) 1.25 mg PO DAILY@1600 [facility] - My Orders Last 24 Hours: My Active Orders 08/22/16 09:00 Phytonadione [Vitamin K] 100 mcg PO DAILY 08/22/16 09:02 Convert IV to Saline Lock [OM.PC] Routine 08/22/16 09:30 Folic Acid 1 mg PO DAILY Multivitamins [Tab-A-Cameron] 1 tab PO DAILY 08/22/16 09:32 Abdomen Pelvis w Cont [CT] Routine 08/22/16 10:00 Enoxaparin [Lovenox] 80 mg SUBCUT Q12HR 08/22/16 10:15 Pantoprazole [ProTONIX IV] 40 mg IVPUSH Q24H 08/22/16 10:21 AFP,TUMOR MARKER [REF] Routine CBC W/O DIFF,HEMOGRAM [HEME] Routine COMPREHENSIVE METABOLIC PN,CMP [CHEM] Routine FOLATE [REF] Routine HAV ANTIBODY IGM [REF] Routine HBS AB [REF] Routine HEPATITIS B CORE,AB TOTAL [REF] Routine LAMOTRIGINE [REF] Routine VITAMIN B12 [CHEM] Routine 08/22/16 10:27 Guaiac [OCCULT BLOOD DIAGNOSTIC] [OP] Routine 08/22/16 21:00 Thiamine [Vitamin B-1] 100 mg PO BEDTIME 08/22/16 Lunch Mechanical Soft Diet [DIET] Protein Restricted Diet [DIET] 08/23/16 05:11 BASIC METABOLIC PANEL,BMP [CHEM] AM
--- NOTE | 2016-08-22 10:57 | PCM.PN ---
- General Info Functional Status: Denies: pain controlled, tolerating diet, ambulating, new symptoms - Review of Systems General: Reports: Weakness. Denies: Appetite Gastrointestinal: Reports: Abdominal pain, Melena Musculoskeletal: Reports: back pain Neurological: Reports: Confusion, Trouble Speaking, Difficulty Walking - Patient Data Vitals - most recent: Last Vital Signs Temp 97.7 F 08/22/16 07:35 Pulse 58 L 08/22/16 08:55 Resp 20 08/22/16 07:35 BP 114/71 08/22/16 08:55 Pulse Ox 98 08/22/16 07:35 Weight - most recent: 81.964 kg I&O - last 24 hours: Intake & Output 08/21/16 08/22/16 08/22/16 22:59 06:59 14:59 Intake Total 1407 1148 Balance 1407 1148 Lab Results last 24 hrs: Laboratory Results - last 24 hr 08/21/16 08/22/16 Range/Units 10:45 07:05 PT 15.7 H (8.7-11.1) INR 1.54 H (0.89-1.13) Ammonia 80 Med Orders - Current: Current Medications Aspirin (Aspirin) 81 mg PO DAILY [facility] Last Admin: 08/22/16 08:54 Dose: 81 mg Enoxaparin Sodium (Lovenox) 80 mg SUBCUT Q12H [facility] Folic Acid (Folic Acid) 1 mg PO DAILY [facility] Lactulose 20 gm/ Lactulose 10 (gm) 30 gm PO TID [facility] Last Admin: 08/22/16 08:55 Dose: 30 gm Levetiracetam (Keppra) 500 mg PO BID [facility] Last Admin: 08/22/16 08:55 Dose: 500 mg Multivitamins/Minerals/Vitamin C (Tab-A-Cameron) 1 tab PO DAILY [facility] Nadolol (Naldol) 20 mg PO DAILY [facility] Last Admin: 08/22/16 08:55 Dose: 20 mg Ondansetron HCl (Zofran Odt) 4 mg PO Q8H PRN PRN Reason: Nausea Pantoprazole Sodium (Protonix Iv) 40 mg IVPUSH Q24H [facility] Phytonadione (Vitamin K) 100 mcg PO DAILY [facility] Rifaximin (Xifaxan) 550 mg PO BID [facility] Last Admin: 08/22/16 08:56 Dose: 550 mg Sertraline HCl (Zoloft) 200 mg PO DAILY [facility] Last Admin: 08/22/16 08:56 Dose: 200 mg Sodium Chloride (Saline Flush) 10 ml FLUSH ASDIRECTED PRN PRN Reason: Keep Vein Open Last Admin: 08/20/16 05:19 Dose: 10 ml Thiamine HCl (Vitamin B-1) 100 mg PO BEDTIME [facility] Warfarin Sodium (Coumadin) 2.5 mg PO 1600 [facility] Stop: 08/22/16 16:01 Warfarin Sodium (Coumadin Sliding Scale) 0 each PO DAILY [facility] Discontinued Medications Acetaminophen (Tylenol) 650 mg PO Q4H PRN PRN Reason: Pain (Mild 1-3)/fever Last Admin: 08/21/16 16:23 Dose: 650 mg Sodium Chloride (Normal Saline) 1,000 mls @ 500 mls/hr IV ASDIRECTED [facility] Last Admin: 08/21/16 03:22 Dose: 150 mls/hr Sodium Chloride (Normal Saline) 1,000 mls @ 125 mls/hr IV ASDIRECTED [facility] Last Admin: 08/20/16 18:38 Dose: 150 mls/hr Potassium Chloride/Dextrose/Sod Cl (D5 1/2 Ns W/ 20 Meq/L Kcl) 1,000 mls @ 100 mls/hr IV Q10H [facility] Last Admin: 08/22/16 07:11 Dose: 100 mls/hr Iopamidol (Isovue-370 (76%)) 100 ml IV . DIRECTED ONE Stop: 08/22/16 10:14 Lactulose 20 gm/ Lactulose 10 (gm) 30 gm PO Q2H [facility] Last Admin: 08/20/16 16:04 Dose: 30 gm Lactulose (Cephulac) 30 gm PO TID [facility] Last Admin: 08/20/16 20:54 Dose: 30 gm Ondansetron HCl (Zofran Odt) 4 mg PO Q6H PRN PRN Reason: nausea, able to take PO Rifaximin (Xifaxan) mg PO DAILY [facility] Warfarin Sodium (Coumadin) 1.25 mg PO DAILY@1600 [facility] Last Admin: 08/21/16 16:05 Dose: 1.25 mg Warfarin Sodium (Coumadin) 1.25 mg PO DAILY@1600 [facility] - Exam Quality Assessment: urine catheter General: cooperative, lethargic HEENT: Pupils equal, Pupils reactive. No: Scleral icterus Neck: No: JVD Lungs: Clear to auscultation Cardiovascular: Regular Rate, Regular Rhythm Abdomen: soft, tenderness (ruq epigastrum). No: rigidity (Male) Exam: Other (catheter site uncomplicated. draining mari urine) Back Exam: Normal Inspection Extremities: normal pulses, no tenderness/swelling Neurological: no new focal deficit Psy/Mental Status: labile mood, anxious - Problem List & Annotations (1) Hepatic encephalopathy SNOMED Code(s): 64447053 Code(s): K72.90 - HEPATIC FAILURE, UNSPECIFIED WITHOUT COMA Status: Acute Priority: High (2) DVT (deep venous thrombosis) SNOMED Code(s): 679368594 Code(s): I82.409 - ACUTE EMBOLISM AND THOMBOS UNSP DEEP VN UNSP LOWER EXTREMITY Status: Acute Qualifiers: Chronicity: chronic Annotation/Comment:: Farshad has a PMH of DVT, and was on Warfarin at last ED visit of 07/29/16. (3) Impaired cognition SNOMED Code(s): 621725460 Code(s): R41.89 - OTH SYMPTOMS AND SIGNS W COGNITIVE FUNCTIONS AND AWARENESS Status: Acute Priority: High Annotation/Comment:: (4) Hepatitis C carrier SNOMED Code(s): 357618597 Code(s): Z22.52 - Status: Chronic Priority: Medium Annotation/Comment: : (5) [place], Myocardial infarction SNOMED Code(s): 05602176 Code(s): I21.3 - ST ELEVATION (STEMI) MYOCARDIAL INFARCTION OF UNSP SITE Status: Acute Annotation/Comment:: Farshad has remote his of NSTEMI and stenting , and needs med compliance and tobacco avoidance to preserve myocardial function. (6) Impaired mobility SNOMED Code(s): 75286183 Code(s): Z74.09 - OTHER REDUCED MOBILITY Status: Acute (7) Palliative care status SNOMED Code(s): 858429019 Code(s): Z51.5 - ENCOUNTER FOR PALLIATIVE CARE Status: Acute (8) Generalized convulsive epilepsy SNOMED Code(s): 52112307 Code(s): G40.309 - GEN IDIOPATHIC EPILEPSY, NOT INTRACTABLE, W/O STAT EPI Status: Chronic Annotation/Comment:: Farshad needs med compliance to avoid relapse of epilepsy. (9) HTN, Essential hypertension SNOMED Code(s): 95739055 Code(s): I10 - ESSENTIAL (PRIMARY) HYPERTENSION Status: Chronic Annotation/Comment:: (10) Cannabis abuse SNOMED Code(s): 00904741 Code(s): F12.10 - CANNABIS ABUSE, UNCOMPLICATED Status: Chronic Annotation/Comment:: Farshad needs a safe environment away from smoking cigarettes or MJ. (11) Tobacco dependence syndrome SNOMED Code(s): 17924782 Code(s): F17.200 - NICOTINE DEPENDENCE, UNSPECIFIED, UNCOMPLICATED Status: Chronic Annotation/Comment:: encouraged cessation, however, doesnt plan to quit at this time. - Problem List Review Problem List Initiated/Reviewed/Updated: Yes - My Orders Last 24 Hours: My Active Orders 08/22/16 09:00 Phytonadione [Vitamin K] 100 mcg PO DAILY 08/22/16 09:02 Convert IV to Saline Lock [OM.PC] Routine 08/22/16 09:30 Folic Acid 1 mg PO DAILY Multivitamins [Tab-A-Cameron] 1 tab PO DAILY 08/22/16 09:32 Abdomen Pelvis w Cont [CT] Routine 08/22/16 10:00 Enoxaparin [Lovenox] 80 mg SUBCUT Q12H 08/22/16 10:15 Pantoprazole [ProTONIX IV] 40 mg IVPUSH Q24H 08/22/16 10:21 AFP,TUMOR MARKER [REF] Routine CBC W/O DIFF,HEMOGRAM [HEME] Routine COMPREHENSIVE METABOLIC PN,CMP [CHEM] Routine FOLATE [REF] Routine HAV ANTIBODY IGM [REF] Routine HBS AB [REF] Routine HEPATITIS B CORE,AB TOTAL [REF] Routine LAMOTRIGINE [REF] Routine VITAMIN B12 [CHEM] Routine 08/22/16 10:40 Guaiac [OCCULT BLOOD DIAGNOSTIC] [OP] Routine 08/22/16 21:00 Thiamine [Vitamin B-1] 100 mg PO BEDTIME 08/22/16 Lunch Mechanical Soft Diet [DIET] Protein Restricted Diet [DIET] 08/23/16 05:11 BASIC METABOLIC PANEL,BMP [CHEM] AM - Plan Plan:: 1. will start soft diet with asp percautions after CT scan. r/o biliary obstruction, liver/stomach or pancreatic mass, esophageal variceses or bowel pathology. with his hx, concern for HHC. will add AFP. continue intermittent abd /back pain control with morphine as able. follow clinical and labs. irn monitoring and warfarin dosing via pharm. appreciate their help. discussed pt and his ex . agree.
[2016-08-22] MEDS: Enoxaparin 80 MG/0.8 ML Syringe SUBCUT SCH ×2 (11:20→21:01)
[2016-08-22] MEDS: Pantoprazole 40 MG Vial IVPUSH SCH (11:20)
[2016-08-22] MEDS: Folic Acid 1 MG Tab PO SCH (13:37)
[2016-08-22] MEDS: Multivitamin Tab PO SCH (13:37)
[2016-08-22] MEDS: Phytonadione 100 MCG Tab PO SCH (13:37)
[2016-08-22] MEDS ORDERED: Warfarin 2.5 MG Tab PO SCH (16:00)
--- NOTE | 2016-08-22 16:09 | CT ---
INDICATION: Hepatic encephalopathy, question cirrhosis, HCC, ascites. CT ABDOMEN AND PELVIS WITH CONTRAST: Spiral 2.5-mm axial sections were obtained through the abdomen and pelvis with oral and IV contrast, sagittal and coronal reconstructions (100 mL Isovue-370 at 1.1 mL per second), 08/22/2016, and compared with 11/20/2010. Total Exam DLP = 796.0 mGy-cm. Interval progression of emphysematous changes is noted in the lungs. Heavy markings are noted in the lingula and both lower lobes, becoming more prominent towards the lung bases for the most part. These increased markings most likely are fibrotic in nature. The heart also is enlarged, compared with the previous examination, with probable coronary artery calcifications. The surface of the liver is rather nodular in appearance, compatible with progressive cirrhosis of the liver. No definite liver mass was identified. The spleen does not appear to be increased in size, however. The patient refused to drink fluids just at the start of the examination. The stomach is empty of contrast. Gallstones are again noted in the gallbladder. The gallbladder wall appears to be slightly thickened, which may be on the basis of a chronic cholecystitis. Acute cholecystitis, of course, cannot be entirely excluded. The gallbladder, however, is not significantly enlarged, measuring a maximum of approximately 63 mm. The common bile duct did not appear to be dilated. The pancreas had a normal appearance. The right adrenal gland appeared normal. On the left, compared with the previous study of 2010, there is now a 17-mm oval nodular density that is has Hounsfield units of approximately 24.7. While likely representing an adrenal adenoma, this is a new finding compared with the previous study and if the patient has history of cancer or possible metastatic disease, close follow-up of this finding may be warranted. There are a few tiny low-density lesions in the kidneys, compatible with benign cystic structures, but too small to be definitive. A probable benign simple cystic structure is noted in the mid pole posterior cortex slightly exophytic, measuring approximately 21 mm. The kidneys were otherwise unremarkable, except for some mild fat stranding. Calcifications are noted in the abdominal aorta, superior mesenteric artery, iliac, and femoral arteries. A total hip arthroplasty on the right produces severe hard beam artifact which limits detail in the mid to lower pelvis. A catheter is noted in the urinary bladder. The urinary bladder wall appears thickened, which may be on the basis of trabeculation or simply cystitis. The prostate did not appear enlarged to strongly suggest trabeculation. A density in the area of the distal inguinal canal may represent somewhat retracted testicle, not seen in that area on the previous study. Correlate clinically. The appendix appeared normal, visualized on coronal images #49 through #53. Degenerative changes and disk disease are noted at L3 through S1 with vacuum disk phenomena at all those levels. Grade 1 retrolisthesis is noted at the L3- 4 level. Subcutaneous air in the mid pelvis anterior right laterally likely is due to an injection site. IMPRESSION: 1. ASHD with cardiomegaly, progressive compared to the previous study. 2. Progressive emphysematous changes in the lungs. 3. Probable progressive pulmonary fibrosis in the lower lung petersen - difficult to exclude patchy bronchopneumonia in these areas of heavy markings which included middle lobe, lingula, and both lower lobes. 4. Cirrhosis of the liver appears progressive. 5. ASD. 6. Cholelithiasis with possibility of chronic and/or acute cholecystitis - correlate clinically. 7. Minimal multicystic disease changes in the kidneys with minimal renal cortical scarring mostly on the left. 8. Degenerative changes and disk disease L3 through S1. 9. Gas in the subcutaneous tissues with some increased density likely on the basis of subcutaneous injections, possibly in a diabetic - correlate clinically. 10. MARCELO on the right with hard beam artifact limiting visualization in the lower pelvis. 11. Thickening of the urinary bladder wall may be on the basis of cystitis. Indwelling catheter noted. 12. Density in the right inguinal canal partly visualized may represent retracted testicle - correlate clinically. CT PELVIS: Examination of the pelvis was obtained by CT as noted above. Apparent injection site with air and increased density - fat stranding noted anteriorly in the right mid pelvis area subcutaneous tissues. MARCELO with hard beam artifact noted on the right. Thickening of the urinary bladder wall is noted which may be on the basis of cystitis. A urinary bladder catheter is noted in place. No definite bladder calculi or air within the urinary bladder was identified. Density in the inguinal canal on the right likely represents retracted testicle, but should be correlated clinically. The appendix appeared normal. Calcification is noted in the arteries. No evidence of bowel obstruction was seen. MTDD
[2016-08-22] MEDS: Sodium Chloride 0.9% 10 ML Syringe FLUSH PRN ×2 (16:30→21:39)
[2016-08-22] MEDS: Morphine 2 MG/ML Syringe IVPUSH PRN (16:30)
[2016-08-22] MEDS: Thiamine 100 MG Tab PO SCH (20:52)
[2016-08-22] MEDS: Furosemide 20 MG/2 ML VIAL IVPUSH SCH (21:39)
[2016-08-23] MEDS: Sodium Chloride 0.9% 10 ML Syringe FLUSH PRN ×3 (05:21→20:46)
[2016-08-23] MEDS: Morphine 2 MG/ML Syringe IVPUSH PRN ×2 (05:21→20:56)
[2016-08-23] MEDS: Furosemide 20 MG/2 ML VIAL IVPUSH SCH ×2 (09:28→20:45)
[2016-08-23] MEDS: LACTULOSE PO SCH ×6 (09:35→20:33)
[2016-08-23] MEDS: Sertraline 100 MG Tab PO SCH (09:36)
[2016-08-23] MEDS: Aspirin 81 MG Tab.Chew PO SCH (09:36)
[2016-08-23] MEDS: Rifaximin 550 MG Tab PO SCH ×2 (09:36→20:34)
[2016-08-23] MEDS: Phytonadione 100 MCG Tab PO SCH (09:37)
[2016-08-23] MEDS: levETIRAcetam 500 MG Tab PO SCH ×2 (09:37→20:33)
[2016-08-23] MEDS: Multivitamin Tab PO SCH (09:37)
[2016-08-23] MEDS: Folic Acid 1 MG Tab PO SCH (09:37)
[2016-08-23] MEDS: Enoxaparin 80 MG/0.8 ML Syringe SUBCUT SCH ×2 (09:37→21:25)
[2016-08-23] MEDS: Pantoprazole 40 MG Vial IVPUSH SCH (09:38)
[2016-08-23] MEDS ORDERED: Warfarin 2.5 MG Tab PO SCH (16:00)
[2016-08-23] MEDS: Thiamine 100 MG Tab PO SCH (20:33)
[2016-08-24] MEDS: Pantoprazole 40 MG Vial IVPUSH SCH (10:13)
[2016-08-24] MEDS: Furosemide 20 MG/2 ML VIAL IVPUSH SCH (10:13)
[2016-08-24] MEDS: Sodium Chloride 0.9% 10 ML Syringe FLUSH PRN (10:17)
[2016-08-24] MEDS: Enoxaparin 80 MG/0.8 ML Syringe SUBCUT SCH (10:17)
[2016-08-24] MEDS: Phytonadione 100 MCG Tab PO SCH (10:19)
[2016-08-24] MEDS: Folic Acid 1 MG Tab PO SCH (10:19)
[2016-08-24] MEDS: levETIRAcetam 500 MG Tab PO SCH (10:19)
[2016-08-24] MEDS: Sertraline 100 MG Tab PO SCH (10:19)
[2016-08-24] MEDS: Multivitamin Tab PO SCH (10:19)
[2016-08-24] MEDS: Rifaximin 550 MG Tab PO SCH (10:20)
[2016-08-24] MEDS: Aspirin 81 MG Tab.Chew PO SCH (10:20)
[2016-08-24] MEDS: LACTULOSE PO SCH ×2 (10:21)
--- NOTE | 2016-08-24 13:03 | PCM.SN ---
- Free Text/Narrative Note: 08/23/16 - General Info Functional Status: abdominal pain better controlled, tolerating some diet, ambulating minimal to bedside commode, no new symptoms - Review of Systems General: Reports: Weakness. assist of 2. some Appetite Gastrointestinal: Reports: Abdominal pain, Melena Musculoskeletal: Reports: back and abdominal pain-but improved. Neurological: Reports: Confusion, Trouble Speaking, Difficulty Walking - Patient Data Vitals /and nursing notes reviewed. labs and studies reviewed. Weight - most recent: 81.964 kg Current Medications Aspirin (Aspirin) 81 mg PO DAILY [facility] Enoxaparin Sodium (Lovenox) 80 mg SUBCUT Q12H [facility] Folic Acid (Folic Acid) 1 mg PO DAILY [facility] Lactulose 20 gm/ Lactulose 10 (gm) 30 gm PO TID [facility] Levetiracetam (Keppra) 500 mg PO BID [facility] Multivitamins/Minerals/Vitamin C (Tab-A-Cameron) 1 tab PO DAILY [facility] Nadolol (Naldol) 20 mg PO DAILY [facility] Ondansetron HCl (Zofran Odt) 4 mg PO Q8H PRN PRN Reason: Nausea Pantoprazole Sodium (Protonix Iv) 40 mg IVPUSH Q24H [facility] Phytonadione (Vitamin K) 100 mcg PO DAILY [facility] Rifaximin (Xifaxan) 550 mg PO BID [facility] Sertraline HCl (Zoloft) 200 mg PO DAILY [facility] Sodium Chloride (Saline Flush) 10 ml FLUSH ASDIRECTED PRN Thiamine HCl (Vitamin B-1) 100 mg PO BEDTIME [facility] Warfarin Sodium (Coumadin) 2.5 mg PO 1600 [facility] Stop: 08/22/16 16:01 Warfarin Sodium (Coumadin Sliding Scale) 0 each PO DAILY [facility] - Exam Quality Assessment: urine catheter General: cooperative, lethargic HEENT: Pupils equal, Pupils reactive. No: Scleral icterus Neck: No: JVD Lungs: Clear to auscultation Cardiovascular: Regular Rate, Regular Rhythm Abdomen: soft, tenderness (ruq epigastrum). No: rigidity (Male) Exam: Other (catheter site uncomplicated. draining mari urine) Back Exam: Normal Inspection Extremities: normal pulses, no tenderness/swelling Neurological: no new focal deficit Psy/Mental Status: labile mood, anxious - Problem List & Annotations (1) Hepatic encephalopathy SNOMED Code(s): 76059051 Code(s): K72.90 - HEPATIC FAILURE, UNSPECIFIED WITHOUT COMA Status: Acute Priority: High (2) DVT (deep venous thrombosis) SNOMED Code(s): 056105630 Code(s): I82.409 - ACUTE EMBOLISM AND THOMBOS UNSP DEEP VN UNSP LOWER EXTREMITY Status: Acute Qualifiers: Chronicity: chronic Annotation/Comment:: Farshad has a PMH of DVT, and was on Warfarin at last ED visit of 07/29/16. (3) Impaired cognition SNOMED Code(s): 777334220 Code(s): R41.89 - OTH SYMPTOMS AND SIGNS W COGNITIVE FUNCTIONS AND AWARENESS Status: Acute Priority: High Annotation/Comment:: (4) Hepatitis C carrier SNOMED Code(s): 930482781 Code(s): Z22.52 - Status: Chronic Priority: Medium Annotation/Comment: : (5) [place], Myocardial infarction SNOMED Code(s): 63735775 Code(s): I21.3 - ST ELEVATION (STEMI) MYOCARDIAL INFARCTION OF [facility] SITE Status: Acute Annotation/Comment:: Farshad has remote his of NSTEMI and stenting , and needs med compliance and tobacco avoidance to preserve myocardial function. (6) Impaired mobility SNOMED Code(s): 88841776 Code(s): Z74.09 - OTHER REDUCED MOBILITY Status: Acute (7) Palliative care status SNOMED Code(s): 958339243 Code(s): Z51.5 - ENCOUNTER FOR PALLIATIVE CARE Status: Acute (8) Generalized convulsive epilepsy SNOMED Code(s): 73875232 Code(s): G40.309 - GEN IDIOPATHIC EPILEPSY, NOT INTRACTABLE, W/O STAT EPI Status: Chronic Annotation/Comment:: Farshad needs med compliance to avoid relapse of epilepsy. (9) HTN, Essential hypertension SNOMED Code(s): 37880094 Code(s): I10 - ESSENTIAL (PRIMARY) HYPERTENSION Status: Chronic Annotation/Comment:: (10) Cannabis abuse SNOMED Code(s): 28860462 Code(s): F12.10 - CANNABIS ABUSE, UNCOMPLICATED Status: Chronic Annotation/Comment:: Farshad needs a safe environment away from smoking cigarettes or MJ. (11) Tobacco dependence syndrome SNOMED Code(s): 94254265 Code(s): F17.200 - NICOTINE DEPENDENCE, UNSPECIFIED, UNCOMPLICATED Status: Chronic Annotation/Comment:: encouraged cessation, however, doesnt plan to quit at this time. - Problem List Review Problem List Initiated/Reviewed/Updated: Yes Plan:: Ct shows possible acute on chronic cholicystitis without biliary obstruction or mass of the liver or pancrease. there is a focal mass noted on the kidney and also along the right inguinal canal. no bowel perf or visible lesion. cirrhotic liver. for now continue soft diet with asp percautions. guaiaic positive. still bridging with lovenox. caution with warfarin. h/h stable. no BRB per rectum. follow clinical and labs. discussed with pt and his ex . agree.
--- NOTE | 2016-08-24 13:04 | PCM.SN ---
- Free Text/Narrative Note: 08/24/16
--- NOTE | 2016-08-24 13:09 | PCM.DCSUM1 ---
Discharge Summary - Discharge Data Discharge Date: 08/24/16 Discharge Disposition: DC/Tfer to Acute Hospital 02 Condition: Fair - Discharge Diagnosis/Problem(s) (1) Cholecystitis with cholangitis SNOMED Code(s): 49567235 ICD Code: K81.9 - CHOLECYSTITIS, UNSPECIFIED; K83.0 - CHOLANGITIS Status: Acute Priority: High Current Visit: Yes (2) Hepatic encephalopathy SNOMED Code(s): 90405548 ICD Code: K72.90 - HEPATIC FAILURE, UNSPECIFIED WITHOUT COMA Status: Acute Priority: High Current Visit: Yes (3) Cirrhosis of liver without ascites SNOMED Code(s): 42309483 ICD Code: K74.60 - UNSPECIFIED CIRRHOSIS OF LIVER Status: Chronic Current Visit: Yes Qualifiers: Hepatic cirrhosis type: alcoholic cirrhosis Qualified Code(s): K70.30 - Alcoholic cirrhosis of liver without ascites (4) Occult blood positive stool SNOMED Code(s): 85711182, 888736106 ICD Code: R19.5 - OTHER FECAL ABNORMALITIES Status: Acute Current Visit: Yes (5) Elevated alpha fetoprotein SNOMED Code(s): 666941308 ICD Code: R77.2 - ABNORMALITY OF ALPHAFETOPROTEIN Status: Acute Current Visit: Yes (6) Hepatitis C carrier SNOMED Code(s): 305715086 ICD Code: Z22.52 - Status: Chronic Priority: Medium Current Visit: Yes Problem Details: (7) DVT (deep venous thrombosis) SNOMED Code(s): 092338696 ICD Code: I82.409 - ACUTE EMBOLISM AND THOMBOS UNSP DEEP VN UNSP LOWER EXTREMITY Status: Acute Current Visit: No Problem Details: Farshad has a PMH of DVT, and was on Warfarin at last ED visit of 07/29/16. Qualifiers: Chronicity: chronic (8) Chronic anticoagulation SNOMED Code(s): 136594104 ICD Code: Z79.01 - [employer]BOUND [employer]SULTANT (CURRENT) USE OF ANTICOAGULANTS Status: Chronic Current Visit: Yes (9) Impaired cognition SNOMED Code(s): 455587917 ICD Code: R41.89 - OT SYMPTOMS AND SIGNS W COGNITIVE FUNCTIONS AND AWARENESS Status: Acute Priority: High Current Visit: Yes Problem Details: (10) Shepherd catheter in place SNOMED Code(s): 643989112 ICD Code: Z92.89 - PERSONAL HISTORY OF OTHER MEDICAL TREATMENT Status: Acute Current Visit: Yes Onset Date: 08/22/16 (11) [place], Myocardial infarction SNOMED Code(s): 20479476 ICD Code: I21.3 - ST ELEVATION (STEMI) MYOCARDIAL INFARCTION OF [facility] SITE Status: Acute Current Visit: No Problem Details: Farshad has remote his of NSTEMI and stenting, and needs med compliance and tobacco avoidance to preserve myocardial function. (12) Impaired mobility SNOMED Code(s): 86223316 ICD Code: Z74.09 - OTHER REDUCED MOBILITY Status: Acute Current Visit: Yes (13) Palliative care status SNOMED Code(s): 001593986 ICD Code: Z51.5 - ENCOUNTER FOR PALLIATIVE CARE Status: Acute Current Visit: Yes (14) Generalized convulsive epilepsy SNOMED Code(s): 22390878 ICD Code: G40.309 - GEN IDIOPATHIC EPILEPSY, NOT INTRACTABLE, W/O STAT EPI Status: Chronic Current Visit: No Problem Details: Farshad needs med compliance to avoid relapse of epilepsy. (15) HTN, Essential hypertension SNOMED Code(s): 44452748 ICD Code: I10 - ESSENTIAL (PRIMARY) HYPERTENSION Status: Chronic Current Visit: No Problem Details: (16) Cannabis abuse SNOMED Code(s): 18404116 ICD Code: F12.10 - CANNABIS ABUSE, UNCOMPLICATED Status: Chronic Current Visit: Yes Problem Details: Farshad needs a safe environment away from smoking cigarettes or MJ. (17) Tobacco dependence syndrome SNOMED Code(s): 61150322 ICD Code: F17.200 - NICOTINE DEPENDENCE, UNSPECIFIED, UNCOMPLICATED Status : Chronic Current Visit: Yes Problem Details: encouraged cessation, however, doesnt plan to quit at this time. - Patient Summary/Data Labs Pending at D/C: Hep panel, ammonia,folate. Recommended Follow-up Testing/Procedures: Abdominal US; GI consult; possible Gen Surg/IR consult. Hospital Course: Mr. Tejeda was admitted 08/20/2016 for acute on chronic hepatic encephalopathy with altered mental status, weakness, falls, dehydration, and poor intake. ammonia and LFTs elevations. started on lactulose, hydrated, supplements, however, developed decreased urine output, shepherd placed with mari urine, new onset RUQ pain/tenderness with Ct scan suggestive of chronic vs acute cholecystis with thickening of GB wall with gallstones but no evidence of bile duct obstruction, worsening cirrhosis, question of adrenal mass, no ascites, defuse vascular calcifications, lung disease, and thickened bladder wall. question of right inguinal mass?. not evident on physical exam. Worsening ALK Phos, with elevated AFP suggestive of possible HCC in background of chronic Hep C, cirrhosis and heavy alcohol use in the past. Possible mass to the adrenal. hx of esophageal varacies, with possitive occult. h/h has been withing normal range during stay and no gross red blood per rectum. Unable to provide further evaluation regarding above due to limitations in our facility regarding further imaging, GI, Surg, IR, or point of care testing/ procedures to diagnosis, manage and give prognosis regarding above. As of now, pt is unsafe to go to home and arrangements have been made to be transferred to [facility], should he require this type of care pending the above. I have consulted with the hospitalist team at [facility] in [place] who are familiar with Mr. Tejeda's history and discussed new findings and progression regarding above and agree he should be further evaluated and managed in higher level of care that is not available to me at this time. I appreciate their assistance in the acceptance and care of this gentleman. Discussed with family at the bedside who appreciate the care and management and transfer. All questions addressed and will send with shepherd and IV in place via ground ambulance. - Discharge Plan Home Medications: Home Meds Minocycline [Minocin] 100 mg PO BID 02/23/14 [History] Sertraline [Zoloft] 200 mg PO DAILY 02/23/14 [History] amLODIPine [Norvasc] 10 mg PO BEDTIME 02/23/14 [History] Nadolol [Naldol] 20 mg PO DAILY 06/29/14 [History] Aspirin [Gil Chewable Aspirin] 81 mg PO DAILY 01/12/16 [History] Meloxicam 7.5 mg PO DAILY 01/12/16 [History] Rifaximin [Xifaxan] 550 tab PO DAILY 01/12/16 [History] Simvastatin 10 mg PO BEDTIME 01/12/16 [History] levETIRAcetam [Keppra] 500 mg PO BID 01/12/16 [History] traZODone 50 mg PO BEDTIME PRN 08/20/16 [History] Folic Acid 1 mg PO DAILY tablet 08/24/16 [Rx] Lactulose [Cephulac] 30 gm PO TID cup 08/24/16 [Rx] Multivitamins [Tab-A-Cameron] 1 tab PO DAILY tablet 08/24/16 [Rx] Pantoprazole [ProTONIX IV] 40 mg IVPUSH Q24H vial 08/24/16 [Rx] Phytonadione [Vitamin K] 100 mcg PO DAILY tablet 08/24/16 [Rx] Rifaximin [Xifaxan] 550 mg PO BID tablet 08/24/16 [Rx] Sodium Chloride 0.9% [Saline Flush] 10 ml FLUSH ASDIRECTED PRN #0 syringe [Rx] Thiamine [Vitamin B-1] 100 mg PO BEDTIME tablet 08/24/16 [Rx] Warfarin [Coumadin] 1.25 mg PO 1600 tablet 08/24/16 [Rx] Referrals: Davy Solomon MD [ED Physician] - - Discharge Summary/Plan Comment DC Time >30 min.: Yes Discharge Summary/Plan Comment: Please see above for assessments. See Hospital Course for HPI and Discharge/Transfer planning. - General Info Date of Service: 08/24/16 Subjective Update: at bedside. mr. Tejeda is lethargic, answers yes and no. slurred speech. tells me my hands are cold. no respiratory distress. keeps his eyes closed, but with open and focus on me when asked. shehperd in place and bothersome to him. does not want to try and get up. generalized weakness throughout without focal findings. at some mashed potatoes this morning. not much else. discomforted by frequent loose stools in his bed as his is unable to get to bedside to commode before accident. ROS: no harper, or vomiting. admits no appetite. pain upper right and mid abdomen. no cp/sob or coughing spells. no fevers. no seizure activity. no hallucinations. confusion and somnolence. no rash or increased jaundice. no new bruising or bleeding sites. chronic low back pain. no joint swelling or leg pain /swelling. no edema. denies pruitis. no perineal or scrotal pain. no neck or jaw pain. - Review of Systems Systems Review Comment: see above. - Patient Data Vitals - Most Recent: Vital Signs (72 hours) 04/11/0108/21/16 08/21/16 16:00 20:00 23:59 Temperature [ Axillary] Temperature [ 97.5 F 98 F 98 F Oral] Pulse, Peripheral Pulse, Peripheral [ Left Pulse Oximetry] Respiratory 16 16 16 Rate Blood Pressure Blood Pressure 115/77 119/80 131/94 H [Left Upper Arm ] O2 Sat by Pulse 99 96 97 Oximetry 08/22/16 08/22/16 08/22/16 04:00 07:35 08:55 Temperature [ Axillary] Temperature [ 97.9 F 97.7 F Oral] Pulse, 58 L Peripheral Pulse, 58 L Peripheral [ Left Pulse Oximetry] Respiratory 16 20 Rate Blood Pressure 114/71 Blood Pressure 132/76 114/71 [Left Upper Arm ] O2 Sat by Pulse 97 98 Oximetry 08/22/16 08/22/16 08/22/16 12:00 16:00 20:00 Temperature [ 206.1 F H 208.4 F H Axillary] Temperature [ 97.4 F Oral] Pulse, Peripheral Pulse, 52 L 64 60 Peripheral [ Left Pulse Oximetry] Respiratory 18 18 18 Rate Blood Pressure Blood Pressure 122/74 133/89 109/72 [Left Upper Arm ] O2 Sat by Pulse 97 100 97 Oximetry 08/23/16 08/23/16 08/23/16 01:04 03:55 08:53 Temperature [ 96.8 F Axillary] Temperature [ 97.1 F 97.8 F Oral] Pulse, Peripheral Pulse, 66 64 73 Peripheral [ Left Pulse Oximetry] Respiratory 18 18 24 H Rate Blood Pressure Blood Pressure 99/58 L 102/62 96/67 [Left Upper Arm ] O2 Sat by Pulse 99 97 98 Oximetry 08/23/16 08/23/16 08/24/16 15:51 20:00 00:00 Temperature [ 209.7 F H 208.6 F H Axillary] Temperature [ 97.4 F Oral] Pulse, Peripheral Pulse, 57 L 69 72 Peripheral [ Left Pulse Oximetry] Respiratory 20 20 20 Rate Blood Pressure Blood Pressure 96/68 113/73 104/70 [Left Upper Arm ] O2 Sat by Pulse 100 96 98 Oximetry 08/24/16 08/24/16 08/24/16 04:43 10:39 13:16 Temperature [ Axillary] Temperature [ 97.6 F 97.4 F 97.6 F Oral] Pulse, Peripheral Pulse, 61 74 68 Peripheral [ Left Pulse Oximetry] Respiratory 18 16 20 Rate Blood Pressure Blood Pressure 112/71 113/75 105/72 [Left Upper Arm ] O2 Sat by Pulse 99 98 97 Oximetry Weight - Most Recent: 80.541 kg I&O - Last 24 hours: Intake & Output 08/22/16 08/23/16 08/24/16 08/25/16 06:59 06:59 06:59 06:59 Intake Total 4200 1415 1810 540 Output Total 200 2425 950 400 Balance 4000 -1010 860 140 Imaging Impressions - Last 24 hrs: CT as above. see pacs Lab Results - Last 24 hrs: Laboratory Results - last 24 hr 08/22/16 08/24/16 08/24/16 Range/Units 11:00 06:45 06:45 PT 23.8 H (8.7-11.1) INR 2.32 H (0.89-1.13) Sodium 137 (135-145) mmol/L Potassium 3.7 (3.5-5.3) mmol/L Chloride 112 H (100-110) mmol/L Carbon Dioxide 18 L (23-29) mmol/L BUN 16 (5-20) mg/dL Creatinine 0.8 (0.6-1.3) mg/dL Est Cr Clr Drug Dosing 119.30 mL/min Estimated GFR (MDRD) > 60 (>60) BUN/Creatinine Ratio 20.0 (9-20) Glucose 89 (80-116) mg/dL Calcium 8.2 L (8.6-10.2) mg/dL Total Bilirubin 1.7 H (0.1-1.3) mg/dL AST (5-27) IU/L ALT 47 H (14-26) IU/L Alkaline Phosphatase 388 H (56-112) IU/L Total Protein 6.8 (6.0-8.0) g/dL Albumin 2.4 L (3.5-5.2) g/dL Globulin 4.4 g/dL Albumin/Globulin Ratio 0.6 Tumor Marker AFP 92850.0 H (0.6-6.6) ng/mL ROSA Results - Last 24 hrs: Microbiology 08/22/16 10:40 Stool / Feces Stool Occult Blood (ROSA) - Final Med Orders - Current: Current Medications Aspirin (Aspirin) 81 mg PO DAILY [facility] Last Admin: 08/24/16 10:20 Dose: 81 mg Folic Acid (Folic Acid) 1 mg PO DAILY [facility] Last Admin: 08/24/16 10:19 Dose: 1 mg Lactulose 20 gm/ Lactulose 10 (gm) 30 gm PO TID [facility] Last Admin: 08/24/16 10:21 Dose: 30 gm Levetiracetam (Keppra) 500 mg PO BID [facility] Last Admin: 08/24/16 10:19 Dose: 500 mg Multivitamins/Minerals/Vitamin C (Tab-A-Cameron) 1 tab PO DAILY [facility] Last Admin: 08/24/16 10:19 Dose: 1 tab Nadolol (Naldol) 20 mg PO DAILY [facility] Last Admin: 08/24/16 10:20 Dose: 20 mg Ondansetron HCl (Zofran Odt) 4 mg PO Q8H PRN PRN Reason: Nausea Pantoprazole Sodium (Protonix Iv) 40 mg IVPUSH Q24H [facility] Last Admin: 08/24/16 10:13 Dose: 40 mg Phytonadione (Vitamin K) 100 mcg PO DAILY [facility] Last Admin: 08/24/16 10:19 Dose: 100 mcg Rifaximin (Xifaxan) 550 mg PO BID [facility] Last Admin: 08/24/16 10:20 Dose: 550 mg Sertraline HCl (Zoloft) 200 mg PO DAILY [facility] Last Admin: 08/24/16 10:19 Dose: 200 mg Sodium Chloride (Saline Flush) 10 ml FLUSH ASDIRECTED PRN PRN Reason: Keep Vein Open Last Admin: 08/24/16 10:17 Dose: 10 ml Thiamine HCl (Vitamin B-1) 100 mg PO BEDTIME [facility] Last Admin: 08/23/16 20:33 Dose: 100 mg Warfarin Sodium (Coumadin Sliding Scale) 0 each PO DAILY [facility] Warfarin Sodium (Coumadin) 1.25 mg PO 1600 [facility] Last Admin: 08/23/16 16:07 Dose: 1.25 mg Discontinued Medications Acetaminophen (Tylenol) 650 mg PO Q4H PRN PRN Reason: Pain (Mild 1-3)/fever Last Admin: 08/21/16 16:23 Dose: 650 mg Enoxaparin Sodium (Lovenox) 80 mg SUBCUT Q12H [facility] Last Admin: 08/24/16 10:17 Dose: 80 mg Furosemide (Lasix) 10 mg IVPUSH BID [facility] Last Admin: 08/24/16 10:13 Dose: 10 mg Sodium Chloride (Normal Saline) 1,000 mls @ 500 mls/hr IV ASDIRECTED [facility] Last Admin: 08/21/16 03:22 Dose: 150 mls/hr Sodium Chloride (Normal Saline) 1,000 mls @ 125 mls/hr IV ASDIRECTED [facility] Last Admin: 08/20/16 18:38 Dose: 150 mls/hr Potassium Chloride/Dextrose/Sod Cl (D5 1/2 Ns W/ 20 Meq/L Kcl) 1,000 mls @ 100 mls/hr IV Q10H [facility] Last Admin: 08/22/16 07:11 Dose: 100 mls/hr Iopamidol (Isovue-370 (76%)) 100 ml IV . DIRECTED ONE Stop: 08/22/16 10:14 Last Admin: 08/22/16 12:27 Dose: 100 ml Lactulose 20 gm/ Lactulose 10 (gm) 30 gm PO Q2H [facility] Last Admin: 08/20/16 16:04 Dose: 30 gm Lactulose (Cephulac) 30 gm PO TID [facility] Last Admin: 08/20/16 20:54 Dose: 30 gm Morphine Sulfate (Morphine) 2 mg IVPUSH Q4H PRN PRN Reason: pain >5/10 Last Admin: 08/23/16 20:56 Dose: 2 mg Ondansetron HCl (Zofran Odt) 4 mg PO Q6H PRN PRN Reason: nausea, able to take PO Rifaximin (Xifaxan) mg PO DAILY [facility] Warfarin Sodium (Coumadin) 1.25 mg PO DAILY@1600 [facility] Last Admin: 08/21/16 16:05 Dose: 1.25 mg Warfarin Sodium (Coumadin) 1.25 mg PO DAILY@1600 [facility] Warfarin Sodium (Coumadin) 2.5 mg PO 1600 [facility] Stop: 08/22/16 16:01 Last Admin: 08/22/16 16:23 Dose: 2.5 mg - Exam Quality Assessment: Reports: urine catheter (dark mari urine), DVT prophylaxis General: Reports: lethargic HEENT: Reports: Pupils equal, Pupils reactive. Denies: Mucous membr. moist/pink Neck: Reports: supple, no thyromegaly. Denies: lymphadenopathy Lungs: Reports: Normal respiratory effort, Decreased breath sounds, Rales ( coarse/chronic bilat) Cardiovascular: Reports: Regular Rate, Regular Rhythm, No Murmurs Abdomen: Reports: soft, no distension, guarding, tenderness (ruq and mid epigastrim), abnormal bowel sounds (hyperactive/lactuose with loose stools.), other (lovenox injection sites healthy.). Denies: rigidity (Male) Exam: Other (shepherd intact without swelling or tenderness to penis.). No: Scrotal swelling, Scrotum tenderness (L) Extremities: Reports: no edema, no calf tenderness Skin: Reports: cool, ecchymosis Wound/Incisions: Reports: erythema (to buttocks and perineum for irritant dermatitis) Neurological: Reports: no new focal deficit, sensation intact Psy/Mental Status: Denies: withdrawal symptoms *Q Meaningful Use (DIS) - VTE *Q VTE Criteria *Q: - Stroke *Q Stroke Criteria *Q: - AMI *Q AMI Criteria *Q:
[2016-08-24 13:17] VITALS: BP 105/72
== END 2016-08-24 13:40 | DRG 57 ==
LOC: FB.ED 20:23 → FB.MS 08-20 01:03 → OBSVTOIN 08-20 18:33
PROVIDERS: ADMIT Family Medicine; ATTEND Family Medicine
DX: G31.2 Degeneration of nervous system due to alcohol (principal); K80.12 Calculus of gallbladder with acute and chronic cholecystitis without obstruction; E86.0 Dehydration; I10 Essential (primary) hypertension; G40.309 Generalized idiopathic epilepsy and epileptic syndromes, not intractable, without status epilepticus; F12.10 Cannabis abuse, uncomplicated; F17.210 Nicotine dependence, cigarettes, uncomplicated; F10.21 Alcohol dependence, in remission; E78.00 Pure hypercholesterolemia, unspecified; I25.2 Old myocardial infarction; F32.9 Major depressive disorder, single episode, unspecified; F41.9 Anxiety disorder, unspecified; Z95.5 Presence of coronary angioplasty implant and graft; Z86.718 Personal history of other venous thrombosis and embolism; R29.6 Repeated falls; M19.90 Unspecified osteoarthritis, unspecified site; R41.89 Other symptoms and signs involving cognitive functions and awareness; B18.2 Chronic viral hepatitis C; Z74.09 Other reduced mobility; K70.30 Alcoholic cirrhosis of liver without ascites; R19.5 Other fecal abnormalities; R77.2 Abnormality of alphafetoprotein; Z79.82 Long term (current) use of aspirin; Z79.01 Long term (current) use of anticoagulants; R53.1 Weakness; Z96.641 Presence of right artificial hip joint; Z96.652 Presence of left artificial knee joint; R41.82 Altered mental status, unspecified
CPT/HCPCS: 36415; 74177; 80048; 80053; 80175; 80305; 81001; 82105; 82140; 82272; 82607; 82746; 83735; 85025; 85027; 85610; 86704; 86706; 86709; 93005; 96360; 96361; 97162-GP; 99284; A9270-GY; C9113; G0480; J1650; J1940; J2270; J3480; J7040; J7050; Q9967